=== PATIENT | female | born 1960 | race Caucasian/White ===

== ENCOUNTER → 2020-06-25 08:18 | Outpatient (CLI) | payer OTHER, SELFPAY ==
--- NOTE | ~2020-06-25 | MMUS_ITS ---
EXAMINATION: MM diag roxana implant BI w michael, US breast BI limited HISTORY: Breast pain. Palpable breast abnormalities bilaterally. TECHNIQUE: Additional 3-D tomosynthesis images of the breasts were performed and synthetic 2-D images were generated. CAD analysis was submitted and interpreted. High resolution limited bilateral breast ultrasound was performed. COMPARISON: 02/03/2018 BREAST PARENCHYMAL COMPOSITION: Breast composed of scattered areas of fibroglandular density. FINDINGS: MAMMOGRAPHIC FINDINGS: There are no suspicious masses, calcifications or architectural distortion in either breast to sugges t malignancy. There are bilateral subpectoral saline implants. ULTRASOUND: Targeted bilateral breast ultrasound: In the right breast at 10:00, 3 cm from the nipple, there is a 4 mm cyst. No other discrete mass is identified in the area of palpable concern in either breast. IMPRESSION: 1. No evidence for malignancy in either breast. 2. Routine yearly screening mammogram and regular clinical breast examination are recommended. BI-RADS Category 2: Benign finding(s). Reviewed, dictated and finalized at location A. IMPRESSION: 1. No evidence for malignancy in either breast. 2. Routine yearly screening mammogram and regular clinical breast examination a re recommended. BI-RADS Category 2: Benign finding(s).
== END ==
PROVIDERS: Visit Provider Advanced Practice Midwife
DX: N64.4 Mastodynia (principal)
CPT/HCPCS: 76642; 77062; 77066; G0279

== ENCOUNTER → 2021-05-22 15:34 | Outpatient (CLI) | payer OTHER, SELFPAY ==
--- NOTE | ~2021-05-22 | US_ITS ---
EXAMINATION: US renal BI EXAM DATE: 05/22/2021 16:01 INDICATION: Urinary crystals, amorphous urate. Hematuria. TECHNIQUE: Multiple grayscale and Doppler images of the kidneys were obtained (by a technologist who performed the scan) and subsequently reviewed. There is no prior study for comparison. FINDINGS: Right kidney: Surgically resected. Left kidney: There is normal contour and echogenicity. It measures 12.2 x 5.0 x 5.5 centimeters. Th ere are no focal renal lesions identified. There is no hydronephrosis. Bladder unremarkable. IMPRESSION: 1. Unremarkable left kidney. Reviewed, dictated and finalized at location B.
== END ==
PROVIDERS: Visit Provider Nurse Practitioner Obstetrics & Gynecology
DX: R82.998 Other abnormal findings in urine (principal)
CPT/HCPCS: 76775

== ENCOUNTER 2024-03-05 14:58 | Outpatient (CLI) | payer OTHER, SELFPAY ==
--- NOTE | ~2024-03-05 | MM_ITS ---
EXAMINATION: MM scrn roxana implant BI w michael HISTORY: Screening mammogram TECHNIQUE: Craniocaudal and mediolateral oblique 3-D tomosynthesis images with implant displacement a nd synthetic 2-D images were generated. Craniocaudal and mediolateral oblique views of the breasts wi thout implant displacement were obtained using full field digital mammography. CAD analysis was submi tted and interpreted. COMPARISON: Comparison to multiple prior studies sequentially, with oldest reviewed study dated 06/13. BREAST PARENCHYMAL COMPOSITION: Not dense: There are scattered areas of fibroglandular density. FINDINGS: There are developing asymmetries in the right breast medially and laterally on CC view. The left breast is stable without evidence for malignancy. IMPRESSION: 1. Developing right breast asymmetries. 2. Additional mammographic views and possible breast ultrasound are recommended. BI-RADS Category 0: Incomplete: Needs additional imaging evaluation. Reviewed, dictated and finalized at location B. IMPRESSION: 1. Developing right breast asymmetries. 2. Additional mammographic views and possible breast ultrasound are recommended . BI-RADS Category 0: Incomplete: Needs additional imaging evaluation.
== END 2024-03-05 14:59 ==
LOC: MICIMG 14:59
DX: Z12.31 Encounter for screening mammogram for malignant neoplasm of breast (principal); R92.8 Other abnormal and inconclusive findings on diagnostic imaging of breast
CPT/HCPCS: 77063; 77067

== ENCOUNTER 2024-03-21 12:33 | Emergency (ER) | payer SELFPAY ==
[2024-03-21 12:50] VITALS: BP 131/70; PULSE 73; RESP 18; TEMP 36.6; O2SAT 99
--- NOTE | 2024-03-21 12:57 | ED.FEMALEGU ---
HPI - Female Genitourinary General Stated complaint: having bladder issues Source: patient and RN notes reviewed Mode of arrival: ambulatory Limitations: no limitations History of Present Illness HPI Narrative: 63-year-old female with a history right nephrectomy at age 4 presented for complaint of urinary frequency and decreased output with dribbling. Onset 3 days. States her urine output and voiding is normal today. Reports she has been having left lower abdominal pain, for which she has been evaluated and told she has cysts on kidney and liver. Denies hematuria, nausea, vomiting, abdominal pain, flank pain, constipation, diarrhea, fevers or chills. Smokes 1ppd. Took 4 amoxicillin this morning for dental work. Related Data Home Medications Medication Instructions Recorded Confirmed carisoprodol 350 mg tablet (Soma) 350 mg PO TID 03/21/24 03/21/24 hydrocodone 7.5 mg-acetaminophen 1 tablet PO Q6H PRN Pain, Moderate 03/21/24 03/21/24 300 mg tablet lorazepam 1 mg tablet (Ativan) 1 mg PO BID PRN Anxiety 03/21/24 03/21/24 Allergies Allergy/AdvReac Type Severity Reaction Status Date / Time levofloxacin AdvReac Joint Pain Verified 03/21/24 13:11 Review of Systems Review of Systems: CONSTITUTIONAL: Denies body aches, fever, chills, or sweats. CARDIOVASCULAR: Denies chest pain, palpitations, or edema. RESPIRATORY: Denies cough or dyspnea. GASTROINTESTINAL: Denies abdominal pain, nausea, vomiting, or diarrhea. GENITOURINARY: Reports frequency, urgency, denies dysuria, hematuria, flank pain SKIN: Denies rash MUSCULOSKELETAL: Denies back pain or myalgia. [facility] Past Medical History Medical History (Updated 03/21/24 @ 13:22 by Juany Reynoso APRN) Arthritis Surgical History Surgical History (Updated 03/21/24 @ 13:22 by Juany Reynoso APRN) H/O right nephrectomy Comments At time of signature, I have reviewed and agree with nursing past medical, surgical, social and family history unless otherwise noted. Please see nursing chart for further information. There is no relevant family history pertinent to the presenting complaint Exam Narrative: GENERAL: Well-appearing and in no acute distress. ENT: Mucous membranes pink and moist. NECK: Normal AROM. Supple. CHEST: No respiratory distress. Clear to auscultation. HEART: Regular rate and rhythm. ABDOMEN: Soft, nontender, nondistended, normal active bowel sounds. No CVA tenderness SKIN: Warm, dry, no rash. NEURO: No focal deficits. Alert and oriented x3. Gait steady. PSYCH: Normal affect. Course Course Emergency Course: Patient is aware of diagnosis, understands and agrees to treatment plan. Anticipatory guidance given. Patient agrees to follow-up as directed and is aware of reasons to seek care at the emergency department. Portions of this record may have been created with voice recognition software Level of Care: Express Care Visit Vital Signs Vital signs: Reviewed MDM - Female Genitourinary MDM Narrative Medical decision making narrative: Discussed physical exam findings and urine dip. Given her history of nephrectomy, will await culture results. Advised supportive measures and signs/symptoms to go to the ER. Pt is appropriate for outpt treatment and f/u. Differential Diagnosis Differential diagnosis: Likely urinary tract infection, cystitis and other Discharge Plan Discharge Clinical Impression: Urinary frequency Patient Disposition: Home, Self-Care Condition: Stable Instructions: Antibiotic Form, Urinary Tract Infection in Women (ED) Additional Instructions: Your urine will be sent of for a culture to determine if bacteria is causing your symptoms. If the culture shows a UTI, you will be notified and an antibiotic will be called in for you. Continue to increase water intake you will need to follow up with your PCP for further evaluation and treatment if symptoms persist, call today to schedule follow-u
[2024-03-21 13:19] LABS: EDUAAPPEAR Clear; EDUABILI Negative; EDUABLOOD 1+; EDUACOLOR1 Yellow; EDUAGLUCOSE Negative; EDUAKETONE Negative; EDUALEUKO Negative; EDUANITRATE Negative; EDUAPROTEIN Negative; EDUAUROBILI 0.2
[2024-03-21 13:28] VITALS: BP 131/70; PULSE 73; RESP 18; TEMP 36.6; O2SAT 99
== END 2024-03-21 13:20 | disposition home or self-care (01) ==
PROVIDERS: Emergency Provider Nurse Practitioner Family
DX: R35.0 Frequency of micturition (principal); M19.90 Unspecified osteoarthritis, unspecified site; Z90.5 Acquired absence of kidney
CPT/HCPCS: 81003; 87086; 99213; G0463

== ENCOUNTER 2024-04-24 09:32 | Outpatient (CLI) | payer OTHER, SELFPAY ==
--- NOTE | ~2024-04-24 | MMUS_ITS ---
EXAMINATION: MM diag roxana implant RT w michael, US breast RT complete HISTORY: Follow-up right breast asymmetries TECHNIQUE: Additional 3-D tomosynthesis images of the right breast were performed and synthetic 2-D i mages were generated. CAD analysis was submitted and interpreted. High resolution complete right sukhdev st ultrasound was performed. COMPARISON: Comparison to multiple prior studies sequentially, with oldest reviewed study dated 03/2020. BREAST PARENCHYMAL COMPOSITION: Not dense: There are scattered areas of fibroglandular density. FINDINGS: MAMMOGRAPHIC FINDINGS: There are no suspicious masses, calcifications or architectural distortion in the right breast to sug gest malignancy. ULTRASOUND: Complete US of all 4 quadrants of the right breast and retroareolar region was reviewed. Normal heter ogeneous echotexture without focal solid or cystic mass. IMPRESSION: 1. No evidence for malignancy in the right breast. 2. Routine yearly screening mammogram and regular clinical breast examination are recommended. BI-RADS Category 1: Negative Reviewed, dictated and finalized at location B. IMPRESSION: 1. No evidence for malignancy in the right breast. 2. Routine yearly screening mammogram and regular clinical breast examination a re recommended. BI-RADS Category 1: Negative
== END 2024-04-24 09:33 ==
DX: R92.8 Other abnormal and inconclusive findings on diagnostic imaging of breast (principal)
CPT/HCPCS: 76641; 77061; 77065; G0279

== ENCOUNTER 2025-06-03 08:45 | Outpatient (CLI) | payer OTHER, SELFPAY ==
--- NOTE | ~2025-06-03 | MM_ITS ---
EXAMINATION: MM scrn roxana implant BI w michael HISTORY: Screening TECHNIQUE: Craniocaudal and mediolateral oblique 3-D tomosynthesis images were obtained and synthetic 2-D images were generated. CAD analysis was submitted and interpreted. Implant displacement views were obtained. COMPARISON: No prior mammogram is available for comparison at this institution. BREAST PARENCHYMAL COMPOSITION: There are scattered areas of fibroglandular density. FINDINGS: There is no evidence of suspicious mass, calcification, or architectural distortion to suggest malignancy. There has been no suspicious interval change. Stable unremarkable breast implants. IMPRESSION: 1. No mammographic evidence of malignancy. Recommend routine screening mammography in one year. BI-RADS Category 2: Benign finding(s) Reviewed, dictated and finalized at location Q. IMPRESSION: 1. No mammographic evidence of malignancy. Recommend routine screening mammogra phy in one year. BI-RADS Category 2: Benign finding(s)
--- OUTSIDE RECORDS SUMMARY | 2025-06-03 09:35 | XMS_ITS | Clinical Summary ---
Author Organization [facility] Address [address] [place] [address] Care Team Providers Care Mold Yard Worker Name Role Phone Rosina ZAVALA MD, Garrett Unavailable [phone] Douglas Samuel MD Primary Care Provider [phone] Moe Ryan MD Unavailable [phone] Source Comments [facility],non-owned Affiliates and Associated Physician Practices is amultiple site organization consisting of ambulatory clinics and hospital sitesin [place], [place], [place] and [place]. This disclosure is being madepursuant to the Care Everywhere program and may not contain all information available regarding this patient. Last updated 18.[facility] Allergies Active Allergy Reactions Criticality Noted Date Comments Acetaminophen-Codein e Nausea and/or Vomiting 10/03/2013 Pt states she take tylenol alone at home with no reaction Medications * Be aware that medications may not be up to date on this document. Alwaysverify current medications with the patient. ranitidine (ZANTAC) 300 MG capsule Take 600 mg by mouth once daily. Active LORazepam (ATIVAN) 1 MG tablet Take 1 mg by mouth every 12 hours as needed. Active tiZANidine (ZANAFLEX) 2 MG tablet Take 2 mg by mouth every 8 hours as needed. Active hydrocodone-staci taminophen (NORCO) 10-325 MG tablet Take 1 Tab by mouth every 4 hours as needed. Active aspirin 81 MG tablet Take 81 mg by mouth once daily. Active oxycodone-aceta minophen (PERCOCET) 10-325 MG tablet Take 1 Tab by mouth every 4 hours as needed. Active hydrocodone-staci taminophen (NORCO) 7.5-325 MG tablet Take 1-2 Tabs by mouth every 4 hours as needed for Pain. 40 Tab 0 11/29/2013 Active hydrOXYzine hcl (ATARAX) 25 MG tablet Take 1 Tab by mouth every 6 hours as needed for Itching (pain, insomnia). 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 Gender Identity Not on file Sexual Orientation Not on file Last Filed Vital Signs Vital Sign Reading Time Taken Comments Blood Pressure 105/69 11/29/2013 4:03 PM CDT Pulse 66 11/29/2013 4:03 PM CDT Temperature 36.1 C (97 F) 11/29/2013 4:03 PM CDT Respiratory Rate 16 11/29/2013 4:03 PM CDT Oxygen Saturation 100% 11/29/2013 4:03 PM CDT Inhaled Oxygen Concentration - - Weight 57.2 kg (126 lb) 05/28/2014 2:24 PM CDT Height 149.9 cm (4' 11) 05/28/2014 2:24 PM CDT Body Mass Index 25.45 05/28/2014 2:24 PM CDT Plan of Treatment Health Maintenance Due Date Last Done Comments BONE DENSITY TESTING 1960 COLOGUARD (AGES 45-75) - COL ON CA SCREENING 1960 COLON MONITORING 1960 COLONOSCOPY - COLON CA SCREENING 1960 CT COLONOGRAPHY - COLON CA SCREENING 1960 Colorectal Cancer Screening 1960 FIT - COLON CA SCREENING 1960 FLEX SIG - COLON CA SCREENING 1960 LIPID TESTING 1960 MAMMOGRAM 1960 HIV SCREENING 1975 HEPATITIS C SCREENING 04/06/1978 DTAP/TDAP/TD VACCINES (1 - Tdap) 1979 PNEUMOCOCCAL VACCINE 50+ (1 of 1 - PCV) 2010 ZOSTER VACCINE (1 of 2) 2010 DEPRESSION SCREENING 09/19/2024 COVID-19 VACCINE (1 - 2023-2 5 season) 2025 INFLUENZA VACCINE (#1) 2025 Respiratory Syncytial Virus (RSV) Vaccine Pt: or over 60 yrs (1 - 1-dose 75+ series) 2035 HEPATITIS B VACCINE Aged Out No longe r eligible based on patient's age to complete this topic HIB VACCINE Aged Out No longer eligi ble based on patient's age to complete this topic HPV VACCINE Aged Out No longer eligi ble based on patient's age to complete this topic MENINGOCOCCAL (Group B) VACC INE SHARED DECISION-MAKING Aged Out No longer eligibl e based on patient's age to complete this topic MENINGOCOCCAL GROUPS A/C/Y/W VACCINE Aged Out No longer eligible b ased on patient's age to complete this topic Insurance [facility] Care Teams Mold Yard Worker Relationship Specialty Start Date End Date Douglas Samuel MD [address] [place] [address] PCP - General Family Medicine 10/01/13 [place] [id number] [facility] [address] [place] [id number] Orthopedic Surgery 10/01/13 [place] [id number] [address] Anesthesiology-Pain Management 10/05/13
--- OUTSIDE RECORDS SUMMARY | 2025-06-03 09:35 | XMS_ITS | Encounter Summary ---
Author Organization [facility] Address [address] [place] [address] Phone Care Team Providers Care Sales Representative Electric Service Name Role Phone Whitney Rodrigez APRN, HERLINDA Primary Care Pro vider Jordana Emerson MD Unavailable [phone] Encounter Details Date Type Department Care Team (Late st Contact Info) Description 03/08/[address] [facility] Preop/Pacu II [address] [place] [address] Jordana Emerson MD [address] [address] Pre-op testing (Primary Dx) Social History Tobacco Use Types Packs/Day Years Used Date Smoking Tobacco: Every Day Cigarettes 1 40 Smokeless Tobacco: Never Alcohol Use Standard Drinks/Week Comments No 0 (1 standard drink = 0.6 oz pur e alcohol) Comments No Sex and Gender Information Value Date Recorded Sex Assigned at Not on file Legal Sex Female 7:27 PM CDT Gender Identity Not on file Sexual Orientation Not on file documented as of this encounter Plan of Treatment Upcoming Encounters Date Type Department Care Team (Late st Contact Info) Description 06/06/2025 3:15 PM CDT Office Visit [facility] - [facility] [address] [place] [address] Jordana Emerson MD [address] [address] documented as of this encounter Results * APTT (PTT) (03/08/2025 11:19 AM CDT) Pathologist [facility] PTT 28 24 - 36 sec 03/08/2025 12:45 PM CDT [facility] Blood Venipuncture / Unknown 03/08/2025 11:19 AM CDT 03/08/2025 12:26 PM CDT Narrative [facility] - 03/08/2025 12:45 PM CDT Therapeutic range for unfractionated heparin at 0.3-0.7 U/mL is an aPTT value in the range of 71-100 seconds. Critical value for the PTT test is >= 122 seconds. Jordana Emerson MD HEMATOLOGY ORDERABLES Final Res ult Performing Organization Address [facility] Co de Phone Number [facility] [address] [place] [address] * PROTIME (PT) (PROTHROMBIN TIME) (03/08/2025 11:19 AM CDT) Pathologist [facility] PROTIME-PATIENT 13.0 11.6 - 14.8 sec 03/08/2025 12:45 PM CDT [facility] INR 1.0 0.9 - 1.2 03/08/2025 12:45 PM CDT [facility] Comment: Therapeutic Ranges INR = 2.0-3.0: Venous thromb, atrial fib, pul embolism, tissue heart valve, ami. INR = 2.5-3.5: Mechanical heart valve Critical value for INR is >/= 4.5 Blood Venipuncture / Unknown 03/08/2025 11:19 AM CDT 03/08/2025 12:26 PM CDT Jordana Emerson MD HEMATOLOGY ORDERABLES Final Res ult Performing Organization Address [facility] Co de Phone Number [facility] [address] [place] [address] documented in this encounter Visit Diagnoses Diagnosis Pre-op testing- Primary Preoperative examination, unspecified documented in this encounter Additional Health Concerns Assessment Noted Time PHQ-9 Depression Total Score: 9 11/07/19 18 1:00 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
--- OUTSIDE RECORDS SUMMARY | 2025-06-03 09:35 | XMS_ITS | Clinical Summary ---
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 INSTRUCTIONS GIVEN TO HOLD UNTIL 03/12/25 SURGERY. Active LORazepam (ATIVAN) 1 MG Tablet Take 1 Tab by mouth 2 times daily. 60 Tab 5 7 Active Additional Information Patient taking differently:1 mg Oral 2 TIMES DAILY,Only taking one dose at bedtime per patient report, Reported on 03/12/2025 Lactobacillus (FLORAJEN ACIDOPHILUS PO) Take 1 Cap by mouth daily. Active HYDROcodone-staci taminophen (NORCO) 5-325 MG Tablet Take 1 Tab by mouth 2 times daily as needed for Pain. 60 Tab 8 Active cyclobenzaprine (FLEXERIL) 10 MG TabletIndicatio ns:Muscle spasms of both lower extremities Take 1 Tab by mouth 3 times daily as needed for Muscle spasms. 60 Tab 1 8 Active RABEprazole (ACIPHEX) 20 MG Tablet Delayed Response TAKE ONE TABLET BY MOUTH TWO TIMES A DAY 180 Tab 8 Active Additional Information Patient taking differently: 20 mg Oral 2 TIMES DAILY, Reported on 03/12/2025 traMADol (ULTRAM) 50 MG TabletIndicatio ns:Open fracture of nasal bone, initial encounter Take 1-2 Tablets by mouth every 6 hours as needed for Severe pain. 20 Tablet Active Additional Information Patient not taking.Reported on 03/08/2025 ezetimibe (ZETIA) 10 MG Tablet Take 10 mg by mouth daily. Active carisoprodol (Soma) 350 MG Tablet Take 350 mg by mouth 3 times daily as needed for Muscle spasms. Active Vitamin A (BETA CAROTENE) 3 MG (22659 UT) Capsule Take 10,000 Units by mouth every other day. Active Cyanocobalamin (VITAMIN B-12 PO) Take by mouth every other day. Active VITAMIN D PO Take 5,000 Units by mouth daily. Active Apoaequorin (Prevagen) 10 MG Capsule Take 10 mg by mouth daily. Active Multivitamin-Mi nerals (Hair Skin and Nails Formula) Tablet Take 1 Tablet by mouth daily. Active fluticasone (FLONASE) 50 MCG/ACT SuspensionIndic ations:Nasal congestion,Hype rtrophy of both inferior nasal turbinates,Maryana ated nasal septum,Allergic rhinitis, unspecified seasonality, unspecified trigger,Eustach tae tube dysfunction, right 2 Sprays by Nasal route daily for 30 days. Use in each nostril as directed. 9.9 mL 2 5 025 Active Problems Problem Noted Date Diagnosed Date Nasal fracture 03/12/2025 Thyroid nodule 08/01/2017 Maxillary sinusitis 07/15/2017 Sore throat 06/16/2017 Acute allergic rhinitis due to pollen 06/16/2017 Neck mass 06/16/2017 Incontinence of feces with fecal urgency 017 Acute superficial gastritis without hemorrhage 1 Neck pain Back pain Headache Dyslipidemia Muscle spasms of neck Encounters Date Type Department Care Team Description 04/24/2025 11:30 AM CDT Office Visit [facility] - [facility] - [place] [address] [place] [id number] Jordana Emerson MD Hearing loss, unspecified hearing loss type, unspecified laterality (Primary Dx); Postoperative visit; Nasal congestion; Hypertrophy of both inferior nasal turbinates; Deviated nasal septum; Allergic rhinitis, unspecified seasonality, unspecified trigger; Eustachian tube dysfunction, right; Facial scar Discharge Disposition: Discharged to home or Selfcare 04/24/2025 Travel 03/28/2025 3:00 PM CDT Office Visit [facility], [facility] & [facility] [address] [place] [address] Jordana Emerson MD Nasal congestion (Primary Dx); Encounter for postoperative care Discharge Disposition: Discharged to home or Selfcare 03/28/2025 Travel 03/20/2025 8:30 AM CDT Office Visit [facility], [facility] & [facility] [place] [address] Jordana Emerson MD Postoperative visit (Primary Dx); Closed displaced fracture of nasal bone with routine healing, subsequent encounter Discharge Disposition: Discharged to home or Selfcare 03/20/2025 Travel 03/18/2025 Telephone [facility] Ear, Nose & Th[facility] [address] [facility] [place] [place] [address] Jordana Emerson MD Surgical Follow-up 03/13/2025 Telephone [facility] & [facility] [address] [facility] [place] [address] Jordana Emerson MD Surgical Follow-up 03/13/2025 Telephone [facility], Nose & Th[facility] #2 [facility] [place] [address] Jordana Emerson MD Surgical Follow-up 03/12/2025 10:10 AM CDT - 03/12/2025 1:00 PM CDT [facility] [place] [address] Jordana Emerson MD BILATERAL INFERIOR TURBINATE REDUCTION 03/12/2025 9:04 AM CDT [facility] [address] [place] [address] Eugene Hines APRN, RUSS 03/12/2025 7:55 AM CDT - 03/12/2025 12:00 PM CDT [facility] [address] [place] [address] Jordana Emerson MD Discharge Disposition: Discharged to home or Selfcare 03/12/2025 Travel 03/08/2025 [facility] [address] [place] [address] Jordana Emerson MD Pre-op testing (Primary Dx) 03/08/2025 Travel 03/07/2025 1:30 PM CDT Office Visit [facility] - [facility], Nose & Th[facility]at - [place] [address] [place] [address] Jordana Emerson MD Closed displaced fracture of nasal bone, initial encounter (Primary Dx); Nasal congestion; Hypertrophy of both inferior nasal turbinates; Deviated nasal septum Discharge Disposition: Discharged to home or Selfcare 03/07/2025 Telephone [facility] - [facility], N[facility] & [facility] - [place] [address] [place] [address] Jordana Emerson MD 03/05/2025 7:56 PM CDT - 03/05/2025 11:19 PM CDT [facility] [address] [place] [address] Nick Sanders MD Open fracture of nasal bone, initial encounter Discharge Disposition: Discharged to home or Selfcare 03/05/2025 Travel from Last 3 Months Immunizations Immunization Administration Dates Next Due Influenza Vaccine greater than 3 yrs 06/21/2012 Influenza Vaccine, Quadrivalent, PF 08/09/2017 PUR FLU 3+ YRS PRES FREE QUAD IM 05/27/2016,08/19 PUR TDAP 7+ YRS IM 01/06/2017 Pneumococcal Vaccine Adult - 23 Valent 8 Family History Medical History Relation Name Comments Coronary Artery Disease Father High Cholesterol Father High Cholesterol Mother Relation Name Status Comments Father Mother Social History Tobacco Use Types Packs/Day Years Used Date Smoking Tobacco: Every Day Cigarettes 1 40 Smokeless Tobacco: Never Tobacco Cessation:Ready to Q uit: Not Asked; Counseling Given: Not Answered Alcohol Use Standard Drinks/Week Comments No 0 (1 standard drink = 0.6 oz pur e alcohol) Comments No Sex and Gender Information Value Date Recorded Sex Assigned at Not on file Legal Sex Female 7:27 PM CDT Gender Identity Not on file Sexual Orientation Not on file Last Filed Vital Signs Vital Sign Reading Time Taken Comments Blood Pressure 130/82 04/24/2025 11:44 AM CDT Pulse 80 04/24/2025 11:44 AM CDT Temperature 36.3 C (97.3 F) 04/24/2025 11:44 AM CDT Respiratory Rate 18 04/24/2025 11:44 AM CDT Oxygen Saturation 96% 04/24/2025 11:44 AM CDT Inhaled Oxygen Concentration - - Weight 56.2 kg (124 lb) 04/24/2025 11:44 AM CDT Height 147.3 cm (4' 10) 04/24/2025 11:44 AM CDT Body Mass Index 25.92 04/24/2025 11:44 AM CDT Plan of Treatment Upcoming Encounters Date Type Department Care Team (Late st Contact Info) Description 06/06/2025 3:15 PM CDT Office Visit [facility] - [facility] - [place] [address] [place] [address] Jordana Emerson MD [address] [address] [address] Health Maintenance Due Date Last Done Comments DEXA Bone Density 1960 Hepatitis C Virus (HCV) Screening 1960 Mammogram 1960 Cologuard 2005 Immunochemical Fecal Occult Blood 2005 Lung Cancer Screening 2010 Zoster Immunization (2 of 3) 10/03/2018 08/08/2018 Pneumococcal Immunization (50+ years) (3 of 3 - PCV20 or PCV21) 07/21/2023 07/21/2018, 11/07/2017 Influenza Immunization (#1) 05/20/202506/20, 07/14/2023, 06/01/2022, Additional history exists SARS-COV-2 Immunization ( season) 2025 03/02/2023, 07/01/2022, 12/31/2021, Additional history exists Td Immunization Every 10 Years (Adults With 1 Tdap) 01/06/2027 01/06/2017 Colonoscopy 04/02/2034 04/02/2024, 07/07/2012 Colorectal Cancer Screening 04/02/2034 Respiratory Syncytial Virus (RSV) Immunization (Adult) (1 - 1-dose 75+ series) 2035 Pneumococcal Immunization Combined Discontinued 07/21/2018, 11/07/2017 Hepatitis B Immunization Aged Out No longer eligible based on patient's age to complete this topic Human Papillomavirus (HPV) Immunization Aged Out No longer eligible based on patient's age to complete this topic Meningococcal Immunization (ACWY) Aged Out No longer eligible based on patient's age to complete this topic Rotavirus Immunization Aged Out No lo nger eligible based on patient's age to complete this topic Procedures Procedure Name Priority Date/Time Associated Diagnosis Comments TYMPANOMETRY Routine 04/24/2025 11:30 AM CDT Eustachian tube dysfunction, right NASAL ENDOSCOPY,DX Routine 04/24/2025 11:30 AM CDT Postoperative visit Nasal congestion Hypertrophy of both inferior nasal turbinates Deviated nasal septum Allergic rhinitis, unspecified seasonality, unspecified trigger Eustachian tube dysfunction, right LMA Routine 03/12/2025 9:48 AM CDT CLOSED RX NOSE FX W STABILIZATN 03/12/2025 8:44 AM CDT CLOSED DISPLACED FRACTURE OF NASAL BONE, NASAL CONGESTION, HYPERTROPHY OF BOTH INFERIOR NASAL TURBINATES, DEVIATED NASAL SEPTUM Special Needs 4'10 128LBS CHRONIC HINSON, AND NECK AND BACK PAIN, ANXIETY. CLOSED RX NOSE FRACTURE 03/12/2025 8:44 AM CDT CLOSED DISPLACED FRACTURE OF NASAL BONE, NASAL CONGESTION, HYPERTROPHY OF BOTH INFERIOR NASAL TURBINATES, DEVIATED NASAL SEPTUM Special Needs 4'10 128LBS CHRONIC HINSON, AND NECK AND BACK PAIN, ANXIETY. THERAPUTIC FRACTURE INFER TURBINATE 03/12/2025 8:44 AM CDT CLOSED DISPLACED FRACTURE OF NASAL BONE, NASAL CONGESTION, HYPERTROPHY OF BOTH INFERIOR NASAL TURBINATES, DEVIATED NASAL SEPTUM Special Needs 4'10 128LBS CHRONIC HINSON, AND NECK AND BACK PAIN, ANXIETY. EXCISION TURBINATE,SUBMUCOU S 03/12/2025 8:44 AM CDT CLOSED DISPLACED FRACTURE OF NASAL BONE, NASAL CONGESTION, HYPERTROPHY OF BOTH INFERIOR NASAL TURBINATES, DEVIATED NASAL SEPTUM Special Needs 4'10 128LBS CHRONIC HINSON, AND NECK AND BACK PAIN, ANXIETY. EXCISION TURBINATE 03/12/2025 8: 44 AM CDT CLOSED DISPLACED FRACTURE OF NASAL BONE, NASAL CONGESTION, HYPERTROPHY OF BOTH INFERIOR NASAL TURBINATES, DEVIATED NASAL SEPTUM Special Needs 4'10 128LBS CHRONIC HINSON, AND NECK AND BACK PAIN, ANXIETY. CBC WITH AUTO DIFFERENTIAL Routine 03/08/2025 11:19 AM CDT Pre-op testing APTT (PTT) Routine 03/08/2025 11:19 AM CDT Pre-op testing PROTIME (PT) (PROTHROMBIN TIME) Routine 03/08/2025 11:19 AM CDT Pre-op testing COMPLETE BLOOD COUNT (CBC) WITH DIFF Routine 03/08/2025 11:19 AM CDT Pre-op testing LACERATION REPAIR Routine 03/05/2025 10:02 PM CDT XR FOOT 3 OR MORE VIEWS LEFT STAT 03/05/2025 9:[address] CERVICAL SPINE WO/ CONTRAST Stat with Interpretation 03/05/2025 9:[address] FACIAL BONES WO CONTRAST Stat with Interpretation 03/05/2025 9:[address] HEAD OR BRAIN WO CONTRAST Stat with Interpretation 03/05/2025 9:10 PM CDT HM COLONOSCOPY Routine 07/07/2012 from Last 3 Months or Most Recently Relevant to Health Maintenance Results * TYMPANOMETRY (04/24/2025 11:30 AM CDT) Narrative Jordana Emerson MD - 04/24/2025 11:30 AM CDT Jordana Emerson MD 04/24/2025 12:39 PM Tympanometry: Right ear: type C curve with normal external canal volume, -105 dapa, ipsilateral reflex absent Left ear: type C curve with normal external canal volume, -106 dapa , ipsilateral reflex absent Jordana Emerson MD [place] - OTORHINOLARYNGOLOGIC Final Result * NASAL ENDOSCOPY,DX (04/24/2025 11:30 AM CDT) Other Narrative Jordana Emerson MD - 04/24/2025 11:30 AM CDT Jordana Emerson MD 04/24/2025 12:39 PM Procedure: Rigid Nasal Endoscopy Anesthesia: Bilateral Nasal Cavities sprayed with lidocaine and oxymetazoline Detail: Rigid nasal endoscopy performed bilaterally. We visualized the entire septum as well as the inferior turbinate, middle turbinate, superior turbinate and sphenoethmoid recess. We also visualized the nasopharynx. Unless mentioned below these structures were normal. Septum was deviated to the right. Bilateral nasal cavity showed clear nasopharynx,no mucopurulent secretions, EBL: none Jordana Emerson MD PROCEDURE/MINOR SURGICAL ORDERA BLES Final Result * LMA (03/12/2025 9:48 AM CDT) Narrative Eugene Hines APRN, CRNA - 03/12/2025 9:48 AM CDT Eugene Hines APRN, CRNA 03/12/2025 9:48 AM LMA Staffing Performed: resident/MEDICAID BILLING CLERK Resident/MEDICAID BILLING CLERK: Eugene Hines APRN, CRNA Performed by: Eugene Hines APRN, CRNA Authorized by: Eugene Hines APRN, CRNA Airway Details Overall Difficulty: Easy LMA Size: 3 Adequate seal established: Yes LMA placement confirmed by: bilateral breath sounds, CO2 detection Atraumatic LMA Placement Eugene Corby Norwood BOX LOADER, MEDICAID BILLING CLERK ANESTHESIA ORDER LORETTA Final Result * (ABNORMAL) CBC WITH AUTO DIFFERENTIAL (03/08/2025 11:19 AM CDT) WBC 7.14 4.00 - 12.00 10(3)/mcL 03/08/2025 1:53 PM CDT [facility] RBC 4.48 3.80 - 5.30 10(6)/mcL 03/08/2025 1:53 PM CDT [facility] HEMOGLOBIN (HGB) 14.4 12.0 - 15.8 g/dL 03/08/2025 1:53 PM CDT [facility] HEMATOCRIT (HCT) 43.1 36.0 - 47.0 % 03/08/2025 1:53 PM CDT [facility] MCV 96.2(H) 82.0 - 96.0 fL 03/08/2025 1:53 PM CDT [facility] MCH 32.1 26.0 - 34.0 pg 03/08/2025 1:53 PM CDT [facility] MCHC 33.4 31.0 - 36.0 g/dL 03/08/2025 1:53 PM CDT [facility] PLATELET COUNT 177 140 - 440 10(3)/mcL 03/08/2025 1:53 PM CDT [facility] RDW 12.6 11.8 - 15.5 % 03/08/2025 1:53 PM CDT [facility] MPV 11.3 9.7 - 12.4 fL 03/08/2025 1:53 PM CDT [facility] NEUTROPHILS 63.4 47.0 - 73.0 % 03/08/2025 1:53 PM CDT [facility] LYMPHOCYTES 28.9 18.0 - 42.0 % 03/08/2025 1:53 PM CDT [facility] MONOCYTES 6.7 4.0 - 12.0 % 03/08/2025 1:53 PM CDT [facility] EOSINOPHILS 0.6 0.0 - 5.0 % 03/08/2025 1:53 PM CDT [facility] BASOPHILS 0.1 0.0 - 1.0 % 03/08/2025 1:53 PM CDT [facility] IMMATURE GRANULOCYTE 0.3 0.0 - 0.4 % 03/08/2025 1:53 PM CDT [facility] Comment:Immature Granulocyte s includes Metamyelocytes, Myelocytes, and Promyelocytes. ABSOLUTE NEUTROPHILS 4.53 1.60 - 7.70 10(3)/mcL 03/08/2025 1:53 PM CDT [facility] ABSOLUTE LYMPHOCYTES 2.06 1.30 - 3.20 10(3)/[facility] 03/08/2025 1:53 PM CDT [facility] ABSOLUTE MONOCYTES 0.48 0.20 - 1.00 10(3)/mcL 03/08/2025 1:53 PM CDT [facility] ABSOLUTE EOSINOPHIL 0.04 0.00 - 0.40 10(3)/[facility] 03/08/2025 1:53 PM CDT [facility] ABSOLUTE BASOPHILS 0.01 0.00 - 0.10 10(3)/mcL 03/08/2025 1:53 PM CDT [facility] ABSOLUTE IMMATURE GRANULOCYTE 0.02 0.00 - 0.03 10 (3) mcL. 03/08/2025 1:53 PM CDT [facility] NRBC PER 100 WBC 0 03/08/20 1:53 PM CDT [facility] Blood Venipuncture / Unknown 03/08/2025 11:19 AM CDT 03/08/2025 12:26 PM CDT us Jordana Emerson MD HEMATOLOGY ORDERABLES Final Res ult [facility] [address] [place] [address] * APTT (PTT) (03/08/2025 11:19 AM CDT) PTT 28 24 - 36 sec 03/08/2025 12:45 PM CDT [facility] Blood Venipuncture / Unknown 03/08/2025 11:19 AM CDT 03/08/2025 12:26 PM CDT Narrative [facility] - 03/08/2025 12:45 PM CDT Therapeutic range for unfractionated heparin at 0.3-0.7 U/mL is an aPTT value in the range of 71-100 seconds. Critical value for the PTT test is >= 122 seconds. Jordana Emerson MD HEMATOLOGY ORDERABLES Final Res ult Performing Organization Address City/[facility] Co de Phone Number [facility] [address] [place] [address] * PROTIME (PT) (PROTHROMBIN TIME) (03/08/2025 11:19 AM CDT) PROTIME-PATIENT 13.0 11.6 - 14.8 sec 03/08/2025 12:45 PM CDT [facility] INR 1.0 0.9 - 1.2 03/08/2025 12:45 PM CDT [facility] Comment: Therapeutic Ranges INR = 2.0-3.0: Venous thromb, atrial fib, pul embolism, tissue heart valve, ami. INR = 2.5-3.5: Mechanical heart valve Critical value for INR is >/= 4.5 Blood Venipuncture / Unknown 03/08/2025 11:19 AM CDT 03/08/2025 12:26 PM CDT Jordana Emerson MD HEMATOLOGY ORDERABLES Final Res ult Performing Organization Address City/[facility]/ZIP Co de Phone Number [facility] [address] [place] [address] * Laceration Repair (03/05/2025 10:02 PM CDT) Narrative Nick Sanders MD - 03/05/2025 10:02 PM CDT Nick Sanders MD 03/05/2025 10:57 PM Laceration Repair Performed by: Susu Feldman APRN, CNP Authorized by: Susu Feldman APRN, CNP Consent: Consent obtained: Verbal Consent given by: Patient Risks discussed: Infection, pain, need for additional repair, poor cosmetic result and poor wound healing Alternatives discussed: No treatment and delayed treatment Rickreall protocol: Patient identity confirmed: Verbally with patient Anesthesia: Anesthesia method: Topical application and local infiltration Topical anesthetic: LET Local anesthetic: Lidocaine 1% w/o epi Laceration details: Location: Face Face location: Nose Length (cm): 1.5 Pre-procedure details: Preparation: Patient was prepped and draped in usual sterile fashion Exploration: Hemostasis achieved with: Direct pressure Treatment: Area cleansed with: Saline and Shur-Clens Amount of cleaning: Standard Skin repair: Repair method: Sutures Suture size: 6-0 Suture material: Nylon Suture technique: Simple interrupted Number of sutures: 5 Approximation: Approximation: Close Repair type: Repair type: Simple Post-procedure details: Dressing: Antibiotic ointment Procedure completion: Tolerated well, no immediate complications Susu Feldman APRN, CNP PROCEDURE/MINOR DANIELS RGICAL ORDERABLES Final Result * XR FOOT 3 OR MORE VIEWS LEFT (03/05/2025 9:19 PM CDT) Anatomical Region Laterality Modality LOWER EXTREMITY, foot Left Digital Ra diography 03/05/2025 9:41 PM CDT Impressions 03/05/2025 9:43 PM CDT IMPRESSION: No acute abnormality identified. Moderate Kaitlin deformity. Narrative 03/05/2025 9:43 PM CDT EXAM DESCRIPTION: XR FOOT 3 OR MORE VIEWS LEFT REASON FOR STUDY: Injury to distal foot isolated to the 1st distal metatarsal TECHNIQUE: Frontal, oblique, and lateral views of the left foot . COMPARISON: None FINDINGS: BONES/JOINTS: No fracture, malalignment, or suspicious osseous lesion is identified. Mild diffuse interphalangeal joint osteoarthritis. Kaitlin deformity. SOFT TISSUES: Unremarkable. THIS IS AN ELECTRONICALLY VERIFIED FINAL REPORT 03/05/2025 9:41 PM - Electronically signed by Gerardo Estrada M.D. AR: KHOA Report ID: [id number] Reading Location: [id number] Procedure Note Gerardo Estrada MD - 03/05/2025 EXAM DESCRIPTION: XR FOOT 3 OR MORE VIEWS LEFT REASON FOR STUDY: Injury to distal foot isolated to the 1st distal metatarsal TECHNIQUE: Frontal, oblique, and lateral views of the left foot . COMPARISON: None FINDINGS: BONES/JOINTS: No fracture, malalignment, or suspicious osseous lesion is identified. Mild diffuse interphalangeal joint osteoarthritis. Kaitlin deformity. SOFT TISSUES: Unremarkable. THIS IS AN ELECTRONICALLY VERIFIED FINAL REPORT 03/05/2025 9:41 PM - Electronically signed by Gerardo Estrada M.D. AR: KHOA Report ID: [id number] Reading Location: [id number] IMPRESSION: No acute abnormality identified. Moderate Kaitlin deformity. Nick Sanders MD IMG DIAGNOSTIC ORDERABLES Final Result * CT CERVICAL SPINE WO/ CONTRAST (03/05/2025 9:14 PM CDT) Anatomical Region Laterality Modality Spine N/A Computed Tomogra phy 03/05/2025 10:0 5 PM CDT Impressions 03/05/2025 10:07 PM CDT IMPRESSION: 1. No acute intracranial findings. 2. No CT evidence of acute traumatic injury to the cervical spine. 3. Acute comminuted and displaced nasal bone fractures with nasal subcutaneous soft tissue gas and subcutaneous contusions. Acute mildly displaced nasal septal fracture. Narrative 03/05/2025 10:07 PM CDT EXAM DESCRIPTION: CT HEAD OR BRAIN WO CONTRAST; CT CERVICAL SPINE WO/ CONTRAST; CT FACIAL BONES WO CONTRAST REASON FOR STUDY: ground level fall today. TECHNIQUE: Axial images acquired through the brain without intravenous contrast. Images stored on PACS. Automated exposure control was used as a dose optimization technique for this examination. Axial images acquired through the cervical spine without intravenous contrast. Images stored on PACS. Automated exposure control was used as a dose optimization technique for this examination. Axial images acquired through the maxillofacial bones without intravenous contrast. Images stored on PACS. Automated exposure control was used as a dose optimization technique for this examination. COMPARISON: 12/20/2016 FINDINGS: Head: BRAIN: No hemorrhage, edema or mass effect. No recent infarct. Nonspecific periventricular and subcortical white matter hypoattenuation which can be seen as sequela of chronic small vessel ischemic disease. Prominent Virchow Shar spaces or old lacunar infarcts adjacent to the basal ganglia. Acute intraventricular hemorrhage. Basal cisterns are patent. No midline shift. EXTRA-AXIAL SPACES: No fluid collections. No masses. CALVARIUM: No acute calvarial fracture. SINUSES/MASTOIDS: Mucosal thickening of the ethmoid air cells. Otherwise, no fluid or mucosal thickening. ORBITS: No significant abnormality. OTHER: Acute comminuted and displaced nasal bone fractures with nasal subcutaneous soft tissue gas. Acute mildly displaced nasal septal fracture. Cervical spine: There is 2 mm anterolisthesis of C7 on T1, 1 mm anterolisthesis of C2 on C3 and 3 mm retrolisthesis of C4 on C5. There is mild upper cervical kyphosis. There is fusion of C5-C7 vertebral bodies. There is no acute fracture. Multilevel degenerative disc disease at the non fused levels of the cervical spine which is severe at C3-C5 and C7-T1. Ajcg-na-rjlrkuru multilevel facet and uncovertebral joint osteoarthritis with [id number] multilevel osseous neural foraminal stenosis. No acute osseous abnormality in the imaged upper thoracic spine. Neck soft tissues demonstrate no acute abnormality. No cervical mass or cervical lymphadenopathy. Imaged lungs demonstrate mild pulmonary emphysema. Maxillofacial bones: Acute comminuted and displaced nasal bone fractures with nasal subcutaneous soft tissue gas and subcutaneous contusions. Acute mildly displaced nasal septal fracture. Mucosal thickening of the ethmoid air cells. The paranasal sinuses are otherwise clear. The ostiomeatal units are patent bilaterally. Mastoid air cells are clear. The IAC's are normal and symmetric. The temporomandibular joints are aligned. Mild right temporomandibular joint osteoarthritis. Orbits and globes are unremarkable. Facial soft tissues are otherwise largely unremarkable. THIS IS AN ELECTRONICALLY VERIFIED FINAL REPORT 03/05/2025 10:05 PM - Electronically signed by Todd Carson M.D. AT: AT Report ID: [id number] Reading Location: [id number] Procedure Note Todd Carson MD - 03/05/2025 EXAM DESCRIPTION: CT HEAD OR BRAIN WO CONTRAST; CT CERVICAL SPINE WO/ CONTRAST; CT FACIAL BONES WO CONTRAST REASON FOR STUDY: ground level fall today. TECHNIQUE: Axial images acquired through the brain without intravenous contrast. Images stored on PACS. Automated exposure control was used as a dose optimization technique for this examination. Axial images acquired through the cervical spine without intravenous contrast. Images stored on PACS. Automated exposure control was used as a dose optimization technique for this examination. Axial images acquired through the maxillofacial bones without intravenous contrast. Images stored on PACS. Automated exposure control was used as a dose optimization technique for this examination. COMPARISON: 12/20/2016 FINDINGS: Head: BRAIN: No hemorrhage, edema or mass effect. No recent infarct. Nonspecific periventricular and subcortical white matter hypoattenuation which can be seen as sequela of chronic small vessel ischemic disease. Prominent Virchow Shar spaces or old lacunar infarcts adjacent to the basal ganglia. Acute intraventricular hemorrhage. Basal cisterns are patent. No midline shift. EXTRA-AXIAL SPACES: No fluid collections. No masses. CALVARIUM: No acute calvarial fracture. SINUSES/MASTOIDS: Mucosal thickening of the ethmoid air cells. Otherwise, no fluid or mucosal thickening. ORBITS: No significant abnormality. OTHER: Acute comminuted and displaced nasal bone fractures with nasal subcutaneous soft tissue gas. Acute mildly displaced nasal septal fracture. Cervical spine: There is 2 mm anterolisthesis of C7 on T1, 1 mm anterolisthesis of C2 on C3 and 3 mm retrolisthesis of C4 on C5. There is mild upper cervical kyphosis. There is fusion of C5-C7 vertebral bodies. There is no acute fracture. Multilevel degenerative disc disease at the non fused levels of the cervical spine which is severe at C3-C5 and C7-T1. Wjme-sx-aiprclik multilevel facet and uncovertebral joint osteoarthritis with xkew-jx-jmwilnqk multilevel osseous neural foraminal stenosis. No acute osseous abnormality in the imaged upper thoracic spine. Neck soft tissues demonstrate no acute abnormality. No cervical mass or cervical lymphadenopathy. Imaged lungs demonstrate mild pulmonary emphysema. Maxillofacial bones: Acute comminuted and displaced nasal bone fractures with nasal subcutaneous soft tissue gas and subcutaneous contusions. Acute mildly displaced nasal septal fracture. Mucosal thickening of the ethmoid air cells. The paranasal sinuses are otherwise clear. The ostiomeatal units are patent bilaterally. Mastoid air cells are clear. The IAC's are normal and symmetric. The temporomandibular joints are aligned. Mild right temporomandibular joint osteoarthritis. Orbits and globes are unremarkable. Facial soft tissues are otherwise largely unremarkable. THIS IS AN ELECTRONICALLY VERIFIED FINAL REPORT 03/05/2025 10:05 PM - Electronically signed by Todd Carson M.D. AT: AT Report ID: [id number] Reading Location: [id number] IMPRESSION: 1. No acute intracranial findings. 2. No CT evidence of acute traumatic injury to the cervical spine. 3. Acute comminuted and displaced nasal bone fractures with nasal subcutaneous soft tissue gas and subcutaneous contusions. Acute mildly displaced nasal septal fracture. Nick Sanders MD IMG CT ORDERABLES Final Re sult * CT FACIAL BONES WO CONTRAST (03/05/2025 9:11 PM CDT) Anatomical Region Laterality Modality Head N/A Computed Tomogra phy 03/05/2025 10:0 5 PM CDT Impressions 03/05/2025 10:07 PM CDT IMPRESSION: 1. No acute intracranial findings. 2. No CT evidence of acute traumatic injury to the cervical spine. 3. Acute comminuted and displaced nasal bone fractures with nasal subcutaneous soft tissue gas and subcutaneous contusions. Acute mildly displaced nasal septal fracture. Narrative 03/05/2025 10:07 PM CDT EXAM DESCRIPTION: CT HEAD OR BRAIN WO CONTRAST; CT CERVICAL SPINE WO/ CONTRAST; CT FACIAL BONES WO CONTRAST REASON FOR STUDY: ground level fall today. TECHNIQUE: Axial images acquired through the brain without intravenous contrast. Images stored on PACS. Automated exposure control was used as a dose optimization technique for this examination. Axial images acquired through the cervical spine without intravenous contrast. Images stored on PACS. Automated exposure control was used as a dose optimization technique for this examination. Axial images acquired through the maxillofacial bones without intravenous contrast. Images stored on PACS. Automated exposure control was used as a dose optimization technique for this examination. COMPARISON: 12/20/2016 FINDINGS: Head: BRAIN: No hemorrhage, edema or mass effect. No recent infarct. Nonspecific periventricular and subcortical white matter hypoattenuation which can be seen as sequela of chronic small vessel ischemic disease. Prominent Virchow Shar spaces or old lacunar infarcts adjacent to the basal ganglia. Acute intraventricular hemorrhage. Basal cisterns are patent. No midline shift. EXTRA-AXIAL SPACES: No fluid collections. No masses. CALVARIUM: No acute calvarial fracture. SINUSES/MASTOIDS: Mucosal thickening of the ethmoid air cells. Otherwise, no fluid or mucosal thickening. ORBITS: No significant abnormality. OTHER: Acute comminuted and displaced nasal bone fractures with nasal subcutaneous soft tissue gas. Acute mildly displaced nasal septal fracture. Cervical spine: There is 2 mm anterolisthesis of C7 on T1, 1 mm anterolisthesis of C2 on C3 and 3 mm retrolisthesis of C4 on C5. There is mild upper cervical kyphosis. There is fusion of C5-C7 vertebral bodies. There is no acute fracture. Multilevel degenerative disc disease at the non fused levels of the cervical spine which is severe at C3-C5 and C7-T1. Bqyx-ro-eabhottj multilevel facet and uncovertebral joint osteoarthritis with fxnc-fy-zercznbm multilevel osseous neural foraminal stenosis. No acute osseous abnormality in the imaged upper thoracic spine. Neck soft tissues demonstrate no acute abnormality. No cervical mass or cervical lymphadenopathy. Imaged lungs demonstrate mild pulmonary emphysema. Maxillofacial bones: Acute comminuted and displaced nasal bone fractures with nasal subcutaneous soft tissue gas and subcutaneous contusions. Acute mildly displaced nasal septal fracture. Mucosal thickening of the ethmoid air cells. The paranasal sinuses are otherwise clear. The ostiomeatal units are patent bilaterally. Mastoid air cells are clear. The IAC's are normal and symmetric. The temporomandibular joints are aligned. Mild right temporomandibular joint osteoarthritis. Orbits and globes are unremarkable. Facial soft tissues are otherwise largely unremarkable. THIS IS AN ELECTRONICALLY VERIFIED FINAL REPORT 03/05/2025 10:05 PM - Electronically signed by Todd Carson M.D. AT: AT Report ID: [id number] Reading Location: [id number] Procedure Note Todd Carson MD - 03/05/2025 EXAM DESCRIPTION: CT HEAD OR BRAIN WO CONTRAST; CT CERVICAL SPINE WO/ CONTRAST; CT FACIAL BONES WO CONTRAST REASON FOR STUDY: ground level fall today. TECHNIQUE: Axial images acquired through the brain without intravenous contrast. Images stored on PACS. Automated exposure control was used as a dose optimization technique for this examination. Axial images acquired through the cervical spine without intravenous contrast. Images stored on PACS. Automated exposure control was used as a dose optimization technique for this examination. Axial images acquired through the maxillofacial bones without intravenous contrast. Images stored on PACS. Automated exposure control was used as a dose optimization technique for this examination. COMPARISON: 12/20/2016 FINDINGS: Head: BRAIN: No hemorrhage, edema or mass effect. No recent infarct. Nonspecific periventricular and subcortical white matter hypoattenuation which can be seen as sequela of chronic small vessel ischemic disease. Prominent Virchow Shar spaces or old lacunar infarcts adjacent to the basal ganglia. Acute intraventricular hemorrhage. Basal cisterns are patent. No midline shift. EXTRA-AXIAL SPACES: No fluid collections. No masses. CALVARIUM: No acute calvarial fracture. SINUSES/MASTOIDS: Mucosal thickening of the ethmoid air cells. Otherwise, no fluid or mucosal thickening. ORBITS: No significant abnormality. OTHER: Acute comminuted and displaced nasal bone fractures with nasal subcutaneous soft tissue gas. Acute mildly displaced nasal septal fracture. Cervical spine: There is 2 mm anterolisthesis of C7 on T1, 1 mm anterolisthesis of C2 on C3 and 3 mm retrolisthesis of C4 on C5. There is mild upper cervical kyphosis. There is fusion of C5-C7 vertebral bodies. There is no acute fracture. Multilevel degenerative disc disease at the non fused levels of the cervical spine which is severe at C3-C5 and C7-T1. Blyo-dz-nqjxjkkg multilevel facet and uncovertebral joint osteoarthritis with rfge-ik-yxqxpcuk multilevel osseous neural foraminal stenosis. No acute osseous abnormality in the imaged upper thoracic spine. Neck soft tissues demonstrate no acute abnormality. No cervical mass or cervical lymphadenopathy. Imaged lungs demonstrate mild pulmonary emphysema. Maxillofacial bones: Acute comminuted and displaced nasal bone fractures with nasal subcutaneous soft tissue gas and subcutaneous contusions. Acute mildly displaced nasal septal fracture. Mucosal thickening of the ethmoid air cells. The paranasal sinuses are otherwise clear. The ostiomeatal units are patent bilaterally. Mastoid air cells are clear. The IAC's are normal and symmetric. The temporomandibular joints are aligned. Mild right temporomandibular joint osteoarthritis. Orbits and globes are unremarkable. Facial soft tissues are otherwise largely unremarkable. THIS IS AN ELECTRONICALLY VERIFIED FINAL REPORT 03/05/2025 10:05 PM - Electronically signed by Todd Carson M.D. AT: AT Report ID: [id number] Reading Location: [id number] IMPRESSION: 1. No acute intracranial findings. 2. No CT evidence of acute traumatic injury to the cervical spine. 3. Acute comminuted and displaced nasal bone fractures with nasal subcutaneous soft tissue gas and subcutaneous contusions. Acute mildly displaced nasal septal fracture. Nick Sanders MD Glenn CT ORDERABLES Final Re sult * CT HEAD OR BRAIN WO CONTRAST (03/05/2025 9:10 PM CDT) Anatomical Region Laterality Modality Head N/A Computed Tomogra phy 03/05/2025 10:0 5 PM CDT Impressions 03/05/2025 10:07 PM CDT IMPRESSION: 1. No acute intracranial findings. 2. No CT evidence of acute traumatic injury to the cervical spine. 3. Acute comminuted and displaced nasal bone fractures with nasal subcutaneous soft tissue gas and subcutaneous contusions. Acute mildly displaced nasal septal fracture. Narrative 03/05/2025 10:07 PM CDT EXAM DESCRIPTION: CT HEAD OR BRAIN WO CONTRAST; CT CERVICAL SPINE WO/ CONTRAST; CT FACIAL BONES WO CONTRAST REASON FOR STUDY: ground level fall today. TECHNIQUE: Axial images acquired through the brain without intravenous contrast. Images stored on PACS. Automated exposure control was used as a dose optimization technique for this examination. Axial images acquired through the cervical spine without intravenous contrast. Images stored on PACS. Automated exposure control was used as a dose optimization technique for this examination. Axial images acquired through the maxillofacial bones without intravenous contrast. Images stored on PACS. Automated exposure control was used as a dose optimization technique for this examination. COMPARISON: 12/20/2016 FINDINGS: Head: BRAIN: No hemorrhage, edema or mass effect. No recent infarct. Nonspecific periventricular and subcortical white matter hypoattenuation which can be seen as sequela of chronic small vessel ischemic disease. Prominent Virchow Shar spaces or old lacunar infarcts adjacent to the basal ganglia. Acute intraventricular hemorrhage. Basal cisterns are patent. No midline shift. EXTRA-AXIAL SPACES: No fluid collections. No masses. CALVARIUM: No acute calvarial fracture. SINUSES/MASTOIDS: Mucosal thickening of the ethmoid air cells. Otherwise, no fluid or mucosal thickening. ORBITS: No significant abnormality. OTHER: Acute comminuted and displaced nasal bone fractures with nasal subcutaneous soft tissue gas. Acute mildly displaced nasal septal fracture. Cervical spine: There is 2 mm anterolisthesis of C7 on T1, 1 mm anterolisthesis of C2 on C3 and 3 mm retrolisthesis of C4 on C5. There is mild upper cervical kyphosis. There is fusion of C5-C7 vertebral bodies. There is no acute fracture. Multilevel degenerative disc disease at the non fused levels of the cervical spine which is severe at C3-C5 and C7-T1. Hsgs-kk-unkoqctg multilevel facet and uncovertebral joint osteoarthritis with tuai-cn-cjhgayij multilevel osseous neural foraminal stenosis. No acute osseous abnormality in the imaged upper thoracic spine. Neck soft tissues demonstrate no acute abnormality. No cervical mass or cervical lymphadenopathy. Imaged lungs demonstrate mild pulmonary emphysema. Maxillofacial bones: Acute comminuted and displaced nasal bone fractures with nasal subcutaneous soft tissue gas and subcutaneous contusions. Acute mildly displaced nasal septal fracture. Mucosal thickening of the ethmoid air cells. The paranasal sinuses are otherwise clear. The ostiomeatal units are patent bilaterally. Mastoid air cells are clear. The IAC's are normal and symmetric. The temporomandibular joints are aligned. Mild right temporomandibular joint osteoarthritis. Orbits and globes are unremarkable. Facial soft tissues are otherwise largely unremarkable. THIS IS AN ELECTRONICALLY VERIFIED FINAL REPORT 03/05/2025 10:05 PM - Electronically signed by Todd Carson M.D. AT: AT Report ID: [id number] Reading Location: [id number] Procedure Note Todd Carson MD - 03/05/2025 EXAM DESCRIPTION: CT HEAD OR BRAIN WO CONTRAST; CT CERVICAL SPINE WO/ CONTRAST; CT FACIAL BONES WO CONTRAST REASON FOR STUDY: ground level fall today. TECHNIQUE: Axial images acquired through the brain without intravenous contrast. Images stored on PACS. Automated exposure control was used as a dose optimization technique for this examination. Axial images acquired through the cervical spine without intravenous contrast. Images stored on PACS. Automated exposure control was used as a dose optimization technique for this examination. Axial images acquired through the maxillofacial bones without intravenous contrast. Images stored on PACS. Automated exposure control was used as a dose optimization technique for this examination. COMPARISON: 12/20/2016 FINDINGS: Head: BRAIN: No hemorrhage, edema or mass effect. No recent infarct. Nonspecific periventricular and subcortical white matter hypoattenuation which can be seen as sequela of chronic small vessel ischemic disease. Prominent Virchow Shar spaces or old lacunar infarcts adjacent to the basal ganglia. Acute intraventricular hemorrhage. Basal cisterns are patent. No midline shift. EXTRA-AXIAL SPACES: No fluid collections. No masses. CALVARIUM: No acute calvarial fracture. SINUSES/MASTOIDS: Mucosal thickening of the ethmoid air cells. Otherwise, no fluid or mucosal thickening. ORBITS: No significant abnormality. OTHER: Acute comminuted and displaced nasal bone fractures with nasal subcutaneous soft tissue gas. Acute mildly displaced nasal septal fracture. Cervical spine: There is 2 mm anterolisthesis of C7 on T1, 1 mm anterolisthesis of C2 on C3 and 3 mm retrolisthesis of C4 on C5. There is mild upper cervical kyphosis. There is fusion of C5-C7 vertebral bodies. There is no acute fracture. Multilevel degenerative disc disease at the non fused levels of the cervical spine which is severe at C3-C5 and C7-T1. Iqoo-gg-znvjbone multilevel facet and uncovertebral joint osteoarthritis with ddku-jd-uttwkfrj multilevel osseous neural foraminal stenosis. No acute osseous abnormality in the imaged upper thoracic spine. Neck soft tissues demonstrate no acute abnormality. No cervical mass or cervical lymphadenopathy. Imaged lungs demonstrate mild pulmonary emphysema. Maxillofacial bones: Acute comminuted and displaced nasal bone fractures with nasal subcutaneous soft tissue gas and subcutaneous contusions. Acute mildly displaced nasal septal fracture. Mucosal thickening of the ethmoid air cells. The paranasal sinuses are otherwise clear. The ostiomeatal units are patent bilaterally. Mastoid air cells are clear. The IAC's are normal and symmetric. The temporomandibular joints are aligned. Mild right temporomandibular joint osteoarthritis. Orbits and globes are unremarkable. Facial soft tissues are otherwise largely unremarkable. THIS IS AN ELECTRONICALLY VERIFIED FINAL REPORT 03/05/2025 10:05 PM - Electronically signed by Todd Carson M.D. AT: AT Report ID: [id number] Reading Location: [id number] IMPRESSION: 1. No acute intracranial findings. 2. No CT evidence of acute traumatic injury to the cervical spine. 3. Acute comminuted and displaced nasal bone fractures with nasal subcutaneous soft tissue gas and subcutaneous contusions. Acute mildly displaced nasal septal fracture. 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
== END 2025-06-03 08:46 | disposition home or self-care (01) ==
LOC: ANHFOHIMG 08:56
DX: Z12.31 Encounter for screening mammogram for malignant neoplasm of breast (principal)
CPT/HCPCS: 77063; 77067

== ENCOUNTER 2025-07-15 08:35 | Outpatient (CLI) | payer OTHER, SELFPAY ==
--- NOTE | ~2025-07-15 | XR_ITS ---
EXAMINATION: XR hand LT min 3V, XR wrist RT min 3V, XR hand RT min 3V, XR wrist LT min 3V DATE: 07/15/2025 09:46 INDICATION: Bilateral hand and wrist pain TECHNIQUE: 1. Posteroanterior, ulnar deviation, oblique, and lateral views of the left wrist were obtained. 2. Dorsal palmar, oblique and lateral views of the left hand were obtained. 3. Posteroanterior, ulnar deviation, oblique, and lateral views of the right wrist were obtained. 4. Dorsal palmar, oblique and lateral views of the right hand were obtained. COMPARISON: None. FINDINGS: Left hand and wrist: Alignment of the left hand and wrist is normal. No fracture identified. Mild polyarticular osteoarthritis at the wrist, triscaphe, first carpometacarpal and multiple interphalangeal joints. No erosions to suggest inflammatory arthritis No focal soft tissue swelling. Right hand and wrist: Alignment of the right hand and wrist is normal. No fracture identified. Mild polyarticular osteoarthritis at the wrist, triscaphe, first carpometacarpal and multiple interphalangeal joints. No erosions to suggest inflammatory arthritis. No focal soft tissue swelling. IMPRESSION: 1. 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 No erosions to suggest inflammatory arthritis. Reviewed, dictated and finalized at location A. IMPRESSION: 1. 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 No eros ions to suggest inflammatory arthritis. IMPRESSION: 1. 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 No eros ions to suggest inflammatory arthritis. IMPRESSION: 1. 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 No eros ions to suggest inflammatory arthritis.
--- NOTE | ~2025-07-15 | XR_ITS ---
XR_[id number]_CR INDICATION: Neck pain. TECHNIQUE: 3 views of the cervical spine. FINDINGS: Bone mineralization is within normal limits. Lateral dental intervals are within normal limits. Bony fusion of the C5, C6 and C7 vertebral bodies. Grade 1 retrolisthesis of C3 on C4 and C4 on C5. Grade 1 anterolisthesis of C7 on T1. Severe intervertebral disc space narrowing at the C3-C4 and C4-C5 levels. Degenerative change throughout the cervical facet joints and uncovertebral joints. Predental space is within normal limits. No compression fracture identified. IMPRESSION: Bony fusion of the C5, C6 and C7 vertebral bodies. Grade 1 retrolisthesis of C3 on C4 and C4 on C5. Grade 1 anterolisthesis of C7 on T1. Severe intervertebral disc space narrowing at the C3-C4 and C4-C5 levels. Degenerative change throughout the cervical facet joints and uncovertebral joints. No compression fracture identified. If symptoms persist or worsen, consider a CT or MRI of the cervical spine for further assessment. Correlate clinically. Reviewed, dictated and finalized at location Q. IMPRESSION: Bony fusion of the C5, C6 and C7 vertebral bodies. Grade 1 retrolisthesis of C3 on C4 and C4 on C5. Grade 1 anterolisthesis of C7 on T1. Severe intervertebral disc space narrowing at the C3-C4 and C4-C5 levels. Degenerative change throughout the cervical facet joints and uncovertebral join ts. No compression fracture identified. If symptoms persist or worsen, consider a CT or MRI of the cervical spine for f urther assessment. Correlate clinically.
--- NOTE | ~2025-07-15 | XR_ITS ---
EXAMINATION: XR hip LT min 2V DATE: 07/15/2025 09:46 INDICATION: Bilateral hip pain. TECHNIQUE: 2 images of the left hip were obtained. COMPARISON: None. FINDINGS: Left hip arthroplasty without radiographic evidence for loosening. No fracture. No dislocation identified. Mild degenerative change in the pubic symphysis. There is bowel gas and stool projecting over the pelvis which limits evaluation. There are a few less than 1.0 cm calcifications projecting over the pelvis which may represent phleboliths, however, a distal ureteral stone or bladder stone or possible. IMPRESSION: 1. Left hip arthroplasty without radiographic evidence for loosening. 2. No fracture identified. If symptoms persist or worsen, consider a short-term follow-up study or additional imaging for further assessment. Reviewed, dictated and finalized at location Q. IMPRESSION: 1. Left hip arthroplasty without radiographic evidence for loosening. 2. No fracture identified. If symptoms persist or worsen, consider a short-term follow-up study or additio nal imaging for further assessment.
--- NOTE | ~2025-07-15 | XR_ITS ---
EXAMINATION: XR thoracic spine 3V DATE: 07/15/2025 09:46 INDICATION: Back pain TECHNIQUE: X-ray thoracic spine 3 views COMPARISON: 3 images of the thoracic spine were obtained. FINDINGS: Thoracic vertebral body heights are within normal limits. No compression fracture in the thoracic spine. Bones appear osteopenic. Moderate to severe degenerative change throughout the thoracic spine. Small patchy opacities in the lower lungs. The upper thoracic spine was not fully visualized in the lateral images due to overlapping structures. IMPRESSION: 1. No compression fracture in the thoracic spine. 2. Moderate to severe degenerative change throughout the thoracic spine. If symptoms persist or worsen, consider a CT or MRI of the thoracic spine for further assessment Reviewed, dictated and finalized at location Q. IMPRESSION: 1. No compression fracture in the thoracic spine. 2. Moderate to severe degenerative change throughout the thoracic spine. If symptoms persist or worsen, consider a CT or MRI of the thoracic spine for f urther assessment
--- NOTE | ~2025-07-15 | XR_ITS ---
EXAMINATION: XR hip RT min 2V DATE: 07/15/2025 09:46 INDICATION: Bilateral hip pain TECHNIQUE: 1. Anteroposterior and frog-leg lateral views of the right hip were obtained. 2. Anteroposterior and frog-leg lateral views of the left hip were obtained. COMPARISON: None. FINDINGS: Bilateral noncemented total hip arthroplasties both which appear well seated in near-anatomic alignment with no periprosthetic lucency to suggest loosening or infection. No fracture. Small amount of atherosclerotic calcific location and a few phleboliths in the pelvis. Soft tissues are otherwise unremarkable. IMPRESSION: 1. Expected appearance of bilateral total hip arthroplasties. Reviewed, dictated and finalized at location A.
--- NOTE | ~2025-07-15 | XR_ITS ---
EXAMINATION: XR lumbar spine 2-3V DATE: 07/15/2025 09:46 INDICATION: Pain TECHNIQUE: 3 images of the lumbar spine were obtained. COMPARISON: None. FINDINGS: There is bowel gas and stool projecting over the pelvis which limits evaluation. Cholecystectomy clips. Bilateral hip arthroplasties. There are a few less than 1.0 cm calcifications projecting over the pelvis which may represent phleboliths, however, a distal ureteral stone or bladder stone or possible. Mild levoconvex curvature of the lumbar spine. Lumbar vertebral body heights are within normal limits. No compression fracture in the lumbar spine. Severe intervertebral disc space narrowing at the L4-5 and L5-S1 levels. Bones appear osteopenic. Vascular calcifications are noted. IMPRESSION: 1. No compression fracture in the lumbar spine. 2. Severe intervertebral disc space narrowing at the L4-5 and L5-S1 levels. If symptoms persist or worsen, consider a CT or MRI of the lumbar spine for further assessment Reviewed, dictated and finalized at location Q. IMPRESSION: 1. No compression fracture in the lumbar spine. 2. Severe intervertebral disc space narrowing at the L4-5 and L5-S1 levels. If symptoms persist or worsen, consider a CT or MRI of the lumbar spine for fur ther assessment
--- OUTSIDE RECORDS SUMMARY | 2025-07-15 09:02 | XMS_ITS | Clinical Summary ---
Author Organization [facility] Address [address] [facility] [place] [address] Care Team Providers Care Inside Parts Sales Name Role Phone Rosina ZAVALA MD, Garrett Unavailable [phone] Douglas Samuel MD Primary Care Provider [phone] Moe Ryan MD Unavailable [phone] Source Comments [facility],non-owned Affiliates and Associated Physician Practices is amultiple site organization consisting of ambulatory clinics and hospital sitesin [place], [place], [place] and [place]. This disclosure is being madepursuant to the Care Everywhere program and may not contain all information available regarding this patient. 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
--- OUTSIDE RECORDS SUMMARY | 2025-07-15 09:03 | XMS_ITS | Patient Health Record ---
Author Organization [facility], [facility] Address [address] [place] [address] [address]. [address] [place] [address] Care Team Providers Care Instructional Technology Specialist Name Role Phone Soheila Canales MD Primary Care Provider Unavail Mariano Hyatt Unavailable [phone] Reason For Referral No Information Medications Medication SIG (Take, Route, Fr equency, Duration) Notes Start Date End Date Status Famotidine 40 MG 1 tablet Orally Twic e a day; Duration: 30 days 07/31/2024 Active Problems Problem Type SNOMED Code ICD Code Onset Dates Problem Status W/U Status Risk Notes Problem Gastritis (5909519) Other gastritis without bleeding (K29.60) Active confirmed Problem History of polyp of colon (situation) (423062153) Personal history of colonic polyps (Z86.010) Active confirmed Problem Colon cancer screening (717475653) Colon cancer screening (Z12.11) Active confirmed Problem Diverticulosis of colon (062925888) Diverticulosis of colon (K57.30) Active confirmed Problem Benign neoplasm of colon (26133571) Benign colon polyp (K63.5) Active confirmed Encounters Encounter Location Date Provider Diagnosis [facility] [address] [place] [address] [address]. [address] [place] [address] 07/24/2024 Mariano Granados Plan Of Treatment No Information Insurance Providers Payer Name Payer Address Payer Phone Subscriber Number Group Number Insured Name Patient Relationship to Insured Coverage Start Date Coverage End Date [employer] [address] [place] [address] [id number] RNEzio Boyd Spouse - patient is the spouse of the insured
--- OUTSIDE RECORDS SUMMARY | 2025-07-15 09:03 | XMS_ITS | Clinical Summary ---
Author Organization [facility] Address [address] [place] [address] Phone Care Team Providers Care Grip Name Role Phone Whitney Rodrigez APRN, TEXTILE WORKER Primary Care Pro vider Jordana Emerson MD Unavailable [phone] Allergies Active Allergy Reactions Criticality Noted [...] Active Vitamin A (BETA CAROTENE) 3 MG (61088 UT) Capsule Take 10,000 Units by mouth every other day. Active Cyanocobalamin (VITAMIN B-12 PO) Take by mouth every other day. Active VITAMIN D PO Take 5,000 Units by mouth daily. Active Apoaequorin (Prevagen) 10 MG Capsule Take 10 mg by mouth daily. Active Multivitamin-Mi nerals (Hair Skin and Nails Formula) Tablet Take 1 Tablet by mouth daily. Active Active Problems Problem Noted Date Diagnosed [...] Description 04/24/2025 11:30 AM CDT Office Visit [facility] [address] [place] [address] Jordana Emerson MD Hearing loss, unspecified hearing loss type, unspecified laterality (Primary Dx); Postoperative visit; Nasal congestion; Hypertrophy of both inferior nasal turbinates; Deviated nasal septum; Allergic rhinitis, unspecified seasonality, unspecified trigger; Eustachian tube dysfunction, right; Facial scar Discharge Disposition: Discharged to home or Selfcare 04/24/2025 Travel from Last 3 Months Immunizations Immunization [...] 04/24/2025 11:44 AM CDT Plan of Treatment Health Maintenance Due [...] tube dysfunction, right NASAL ENDOSCOPY,DX Routine 04/24/2025 11 :30 AM CDT Postoperative visit Nasal congestion Hypertrophy of both inferior nasal turbinates Deviated nasal septum Allergic rhinitis, unspecified seasonality, unspecified trigger Eustachian tube dysfunction, right COLONOSCOPY Routine 07/07/2012 from Last 3 Months [...] , ipsilateral reflex absent Jordana Emerson MD [place] - OTORHINOLARYNGOLOGIC Final Result * NASAL ENDOSCOPY,DX [...] PROCEDURE/MINOR SURGICAL ORDERA BLES Final Result * HM COLONOSCOPY (07/07/2012) Douglas Samuel DO PROCEDURE/MINOR SURGICAL ORDERAB LES Final Result from Last 3 Months or Most Recently Relevant to Health Maintenance Care Teams Grip Relationship Specialty Start Date End Date Whitney Rodrigez, TUBE TEST TECHNICIAN, TEXTILE WORKER [address] [place] [address] PCP - General Advanced Practice Nurse 03/07/25 Jordana Emerson MD [address] [facility] [address] [place] [id number] Consulting Physician Otolaryngology 03/07/25
--- OUTSIDE RECORDS SUMMARY | 2025-07-15 09:03 | XMS_ITS | Encounter Summary ---
Author Organization [facility] Address [address] [place] [address] Phone Care Team Providers Care Motor Pool Clerk Name Role Phone Whitney Rodrigez APRN, CNP Primary Care Pro vider Jordana Emerson MD Unavailable [phone] Encounter Details Date Type Department Care Team (Late st Contact Info) Description 03/08/2025 [facility] [address] [place] [address] Jordana Emerson MD #2 [facility] [address] [place] [address] Pre-op testing (Primary Dx) Social History [...] as of this encounter Plan of Treatment Not on file documented as of this encounter Results * APTT (PTT) (03/08/2025 11:19 AM CDT) PTT 28 24 - 36 sec 03/08/2025 12:45 PM CDT [facility] Blood Venipuncture / Unknown 03/08/2025 11:19 AM CDT 03/08/2025 12:26 PM CDT Narrative [facility] - 03/08/2025 12:45 PM CDT Therapeutic range for unfractionated heparin at 0.3-0.7 U/mL is an aPTT value in the range of 71-100 seconds. Critical value for the PTT test is >= 122 seconds. Jordana Emerson MD HEMATOLOGY ORDERABLES Final Res ult Performing Organization Address City/[facility] Co de Phone Number [facility] [address] [place] [address] * PROTIME (PT) (PROTHROMBIN TIME) (03/08/2025 11:19 [...] ORDERABLES Final Res ult Performing Organization Address [facility] Co de Phone Number [facility] [address] [place] [address] documented in this encounter Visit Diagnoses Diagnosis Pre-op testing- Primary Preoperative examination, unspecified documented in this encounter Additional Health Concerns Assessment Noted Time PHQ-9 Depression Total Score: 9 11/07/19 18 1:00 PM 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
--- OUTSIDE RECORDS SUMMARY | 2025-07-15 09:03 | XMS_ITS | Patient Health Record ---
Author Organization [facility] Address [address] [place] [address] Care Team Providers Care Rockboard Lather Name Role Phone Soheila Canales Primary Care Provider Katy Barrera MD, Eladio Unavailable [phone] ALLERGIES Allergen (clinical drug ingredient) Drug/Non Drug Allergy documented on EMR Reaction Allergy Type Onset Date Status levofloxacin Levofloxacin Unknown Drug Allergy A ctive REASON FOR REFERRAL No Information MEDICATIONS Medication SIG (Take, Route, Fr equency, Duration) Notes Start Date End Date Status Wolverine Active RABEprazole Sodium A ctive Carisoprodol Active Vitamin A Active Low-Dose Aspirin Act alfredo LORazepam Active Vitamin B Complex Ac tive Vitamin D Active IMMUNIZATIONS Vaccine Route Administration Date Status Comme nts Influenza Unknown 05/05/2022 Administered pneumoccocal Unknown 05/05/2022 Administered SOCIAL HISTORY Tobacco Use: Social History Observation Description Date Details (start date - stop date) Current Smoker NA - NA Sex Assigned At : Social History Observation Description Sex Assigned At Unknown Tobacco Use: Question Answer Notes Patient is a: current smoker How often do you smoke cigarettes? every day How many cigarettes a day do you smoke? 11-20 Are you interested in quitting? Ready to quit Alcohol screening: Question Answer Notes Did you have a drink containing alcohol in the p ast year? No Points 0 Interpretation Negative PROBLEMS Problem Type ICD Code Onset Dates Problem Status W/U Status Risk SNOMED Code Notes Problem Unspecified injury of left shoulder and upper arm, initial encounter (S49.92XA) 2 Active confirmed Injury of shoulder and upper arm (655236238) Problem Strain of muscle(s) and tendon(s) of the rotator cuff of right shoulder, initial encounter (S46.011A) 2 Active confirmed Strain of muscle of right shoulder (57661816964283 105) Problem Impingement syndrome of right shoulder (M75.41) 2 Active confirmed Impingement syndrome of shoulder region (082172156) Problem Fall in shower (W18.2XXA) 2 Active confirmed Fall in shower (72828447) PLAN OF TREATMENT Pending Test Test Name Order Date Intra-articular Injection: Left Shoulder 05/18/2022 Insurance Providers Payer Name Payer Address Payer Phone Subscriber Number Group Number Insured Name Patient Relationship to Insured Coverage Start Date Coverage End Date Nora [address] [place] [phone] [id number] Juliet Jaramillo Self - patient is the insured MEDICAL (GENERAL) HISTORY Medical History History ICD Code HLD 1 Kidney Acid reflux RA Ulcers Surgical History Surgery Date(Month/Year) Right nephrectomy 1964 Tonsilectomy and adenoidectomy 1967 Appendectomy 1976 Neck surgery 1995 Right ovary and fallopian tube surgery 2 000 Breast implants 2007 Left and right hip surgery 2013
== END 2025-07-15 08:36 | disposition home or self-care (01) ==
LOC: CHSIMG 08:39
PROVIDERS: PCP Internal Medicine; Visit Provider Internal Medicine
DX: M25.552 Pain in left hip (principal); M25.551 Pain in right hip; M54.2 Cervicalgia; M54.6 Pain in thoracic spine; M43.02 Spondylolysis, cervical region; M85.88 Other specified disorders of bone density and structure, other site; Z96.643 Presence of artificial hip joint, bilateral; M19.042 Primary osteoarthritis, left hand; M19.041 Primary osteoarthritis, right hand; M19.032 Primary osteoarthritis, left wrist; M19.031 Primary osteoarthritis, right wrist
CPT/HCPCS: 72040; 72072; 72100; 73110; 73130; 73502

== ENCOUNTER 2025-07-24 10:46 | Outpatient (CLI) | payer OTHER, SELFPAY ==
--- NOTE | ~2025-07-24 | US_ITS ---
EXAMINATION: US abdomen complete DATE: 07/24/2025 13:28 INDICATION: Hematuria. Liver cyst. TECHNIQUE: Multiple grayscale and Doppler ultrasound images of the abdomen were obtained. COMPARISON: 05/22/2021 FINDINGS: Abdominal aorta is normal measuring up to 2.0 cm in maximal diameter proximally tapering to 1.6 cm in the distal aorta. Inferior vena cava is unremarkable. The pancreatic head and body are normal in appearance. The pancreatic tail is not visualized. Liver has normal echogenicity and contour, with a smooth surface. 5.7 similar anechoic cyst in the left hepatic lobe and smaller 1.6 cm anechoic cyst in the right hepatic lobe. No intrahepatic biliary duct dilation suspected. Portal venous flow was seen in the hepatopetal, normal direction and has normal Doppler waveform.. Gallbladder is nonvisualized and reportedly surgically absent. The common bile duct is dilated to 12 mm in maximal diameter. The di stalmost common bile duct is not visualized. Normal spleen measuring 9.3 cm in length. The right kidney is not visualized and also reportedly absent. The left kidney measures 12.0 x 4.7 x 4.7 cm with normal contour and echogenicity. No evident shadowing nephrolithiasis or hydronephrosis in the left kidney. Left extrarenal pelvis versus mild hydroureter of the proximal most left ureter. The more distal ureters not visualized. The incompletely distended bladder is normal with left-sided ureteral jet visualized on color Doppler. IMPRESSION: 1. Left extra renal pelvis versus mild proximal left hydroureter with no lesley hydronephrosis and with left ureteral jet visualized in the bladder. Status post right nephrectomy. 2. Common duct bile duct dilated to 12 mm without intrahepatic ductal or ductal dilation, likely related to prior cholecystectomy. Correlate with liver function tests and if there is clinical concern for biliary obstruction could consider MRCP for further evaluation of the distalmost nonvisualized common bile duct. 3. Normal caliber abdominal aorta. Reviewed, dictated and finalized at location A. DEPILER OPERATOR IMPRESSION: 1. Left extra renal pelvis versus mild proximal left hydroureter with no lesley hydronephrosis and with left ureteral jet visualized in the bladder. Status pos t right nephrectomy. 2. Common duct bile duct dilated to 12 mm without intrahepatic ductal or ductal dilation, likely related to prior cholecystectomy. Correlate with liver functi on tests and if there is clinical concern for biliary obstruction could conside r MRCP for further evaluation of the distalmost nonvisualized common bile duct. 3. Normal caliber abdominal aorta.
--- OUTSIDE RECORDS SUMMARY | 2025-07-25 10:39 | XMS_ITS | Clinical Summary ---
Author Organization [facility] Address [address] [facility] [place] [address] Care Team Providers Care Laboratory Veterinarian Name Role Phone Rosina ZAVALA MD, Garrett Unavailable [phone] Douglas Samuel MD Primary Care Provider [phone] Moe Ryan MD Unavailable [phone] Source Comments [facility],non-owned Affiliates and Associated Physician Practices is amultiple site organization consisting of ambulatory clinics and hospital sitesin [place], [place], [place] and [place]. This disclosure is being madepursuant to the Care Everywhere program and may not contain all information available regarding this patient. 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
--- OUTSIDE RECORDS SUMMARY | 2025-07-25 10:40 | XMS_ITS | Encounter Summary ---
Author Organization [facility] Address [address] [place] [address] Phone Care Team Providers Care Agricultural Engineering Technologist Name Role Phone Whitney Rodrigez APRN, CNP Primary Care Pro vider Jordana Emerson MD Unavailable Encounter Details Date Type Department Care Team (Late st Contact Info) Description 03/08/[address] [facility] Preop/Pacu II [address] [place] [address] Jordana Emerson MD #2 [facility] [address] [place] [address] Pre-op testing (Primary Dx) Social [...] - 36 sec 03/08/2025 12:45 PM CDT [facility] Blood Venipuncture / Unknown 03/08/2025 11:19 AM CDT 03/08/2025 12:26 PM CDT Narrative [facility] - 03/08/2025 12:45 PM CDT Therapeutic range for unfractionated heparin at 0.3-0.7 U/mL is an aPTT value in the range of 71-100 seconds. Critical value for the PTT test is >= 122 seconds. Jordana Emerson MD HEMATOLOGY ORDERABLES Final Res ult Performing Organization Address [facility] Co de Phone Number [facility] [address] [place] [address] * PROTIME (PT) (PROTHROMBIN TIME) (03/08/2025 11:19 AM CDT) PROTIME-PATIENT 13.0 11.6 - 14.8 sec 03/08/2025 12:45 PM CDT [facility] INR 1.0 0.9 - 1.2 03/08/2025 12:45 PM CDT [facility] Comment: Therapeutic Ranges INR = 2.0-3.0: Venous thromb, atrial fib, pul embolism, tissue heart valve, ami. INR = 2.5-3.5: Mechanical heart valve Critical value for INR is >/= 4.5 Blood Venipuncture / Unknown 03/08/2025 11:19 AM CDT 03/08/2025 12:26 PM CDT Jordana Emerson MD HEMATOLOGY ORDERABLES Final Res ult Performing Organization Address [facility] de Phone Number [facility] [address] [place] [address] documented in this encounter Visit Diagnoses Diagnosis Pre-op testing- Primary Preoperative examination, unspecified documented in this encounter Additional Health Concerns Assessment Noted Time PHQ-9 Depression Total Score: 9 11/07/19 18 1:00 PM 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
--- OUTSIDE RECORDS SUMMARY | 2025-07-25 10:40 | XMS_ITS | Patient Health Record ---
Author Organization [facility] Address [address] [facility] [facility] [address] [place] [address] Care Team Providers Care Auctioneer Art Name Role Phone Soheila Canales MD Primary Care Provider Unavail able Mariano Granados Unavailable [phone] Reason For Referral No Information Medications Medication SIG (Take, Route, Fr equency, Duration) Notes Start Date End Date Status Famotidine 40 MG 1 tablet Orally Twic e a day; Duration: 30 days 07/31/2024 Active Problems Problem Type SNOMED Code ICD Code Onset Dates Problem Status W/U Status Risk Notes Problem Gastritis (6106105) Other gastritis without bleeding (K29.60) Active confirmed Problem History of polyp of colon (situation) (654367695) Personal history of colonic polyps (Z86.010) Active confirmed Problem Colon cancer screening (627309910) Colon cancer screening (Z12.11) Active confirmed Problem Diverticulosis of colon (136812882) Diverticulosis of colon (K57.30) Active confirmed Problem Benign neoplasm of colon (75072735) Benign colon polyp (K63.5) Active confirmed Plan Of Treatment No Information Insurance Providers Payer Name Payer Address Payer Phone Subscriber Number Group Number Insured Name Patient Relationship to Insured Coverage Start Date Coverage End Date [employer] [address] [place] [address] [id number] Ezio Sanders Spouse - patient is the spouse of the insured
--- OUTSIDE RECORDS SUMMARY | 2025-07-25 10:40 | XMS_ITS | Clinical Summary ---
Author Organization [facility] Address [address] [place] [id number] Care Team Providers Care Sales Development Representative Name Role Phone Whitney Rodrigez NP Primary Care Provider Allergies Active Allergy Reactions Criticality Noted Date Comments Acetaminophen-Codeine Nausea only,Vomiting,Nause a And Vomiting 10/03/2013 Reaction: NAUSEA, VOMITING, Pt states she take tylenol alone at home with no reaction Amoxicillin-Pot Clavulanate Diarrhea,Rash,Nause a & Vomiting Medium 03/06/2025 Codeine Nausea & Vomiting Low 02/12/2025 Corticosteroids (Glucocorticoids) Anxiety Low 07/23/2025 Gabapentin Other (See comments) 02/12/2025 Sadness; pt does not want Levofloxacin Other (See comments) 07/26/2017 Joint pain Ckcekco-Rak-Kee Reductase Inhibitors Unknown 02/12/2025 Medications aspirin 81 mg enteric coated tablet Take 1 tablet (81 mg total) by mouth daily Active carisoprodoL (SOMA) 350 mg tabletIndications: Muscle spasm Take 1 tablet (350 mg total) by mouth 3 (three) times a day as needed for muscle spasms 90 tablet 02/13/20 25 Active ezetimibe (ZETIA) 10 mg tabletIndications: Dyslipidemia Take 1 tablet (10 mg total) by mouth daily 90 tablet 02/13/20 25 Active azelastine-flutica sone 137-50 mcg/spray spray,non-aerosolI ndications:Chronic rhinitis Administer 1 spray into affected nostril(s) 2 (two) times a day 23 g 2 02/13/20 25 Active cetirizine (ZyrTEC) 10 mg tabletIndications: Chronic rhinitis Take 1 tablet (10 mg total) by mouth daily as needed for allergies 90 tablet 1 02/13/[address] (ACIPHEX) 20 mg EC tablet Take 1 tablet (20 mg total) by mouth daily 90 tablet 1 02/16/20 25 Active ondansetron ODT (ZOFRAN-ODT) 4 mg disintegrating tablet Take 1 tablet (4 mg total) by mouth every 8 (eight) hours as needed for nausea or vomiting 21 tablet 02/29/20 25 Active neomycin-bacitraci n-polymyxin B-pramoxine (NEOSPORIN PLUS) 3.5-500-10,000 wx-neql-rpmg/g ointmentIndication s:Abrasion Apply topically 2 (two) times a day 28 g 03/06/20 25 Active diclofenac sodium (VOLTAREN) 1 % gelIndications:Shauna n in toes of both feet Apply 2 g topically 3 (three) times a day 50 g 03/06/20 25 Active LORazepam (ATIVAN) 1 mg tabletIndications: Generalized anxiety disorder TAKE 1 TABLET (1 MG TOTAL) BY MOUTH TWO (2) (TWO) TIMES a DAY 60 tablet 06/11/20 25 Active HYDROcodone-acetam inophen (NORCO) 7.5-325 mg per tabletIndications: Pain TAKE 1 TABLET BY MOUTH EVERY 8 (EIGHT) HOURS NEEDED FOR PAIN 90 tablet 06/11/20 25 025 Active Problems Problem Noted Date Diagnosed Date Deviated nasal septum 07/24/2025 Nasal turbinate hypertrophy 07/24/2025 Internal nasal valve collapse, static 07/24/2025 External nasal valve collapse, static 07/24/2025 Closed fracture of nasal bones 07/24/2025 Diverticulosis of colon 02/12/2025 Dyslipidemia 02/12/2025 Assessment & Plan (02/12/2025 9:38 AM CDT): -chronic, controlled -currently takes Zetia 10 mg -Discussed importance of well-balanced diet -will recheck lab values at future visits -refill of medication provided -continue current treatment plan History of colonic polyps 02/12/2025 Overweight with body mass in dex (BMI) of 26 to 26.9 in adult 02/12/2025 Assessment & Plan (03/06/2025 5:58 PM CDT): Wt Readings from Last 3 Encounters: 03/06/25 57 kg (125 lb 9.6 oz) 02/12/25 58.4 kg (128 lb 12.8 oz) 07/04/17 60 kg (132 lb 4.1 oz) Body mass index is 26.25 kg/m . -Stable, at goal of <30 bmi -Discussed recommendations for exercise at least 30 minutes moderate to vigorous exercise as tolerated most days of the week. (minimum 150 minutes weekly) -Discussed importance of well-balanced diet Assessment & Plan (02/12/2025 8:20 AM CDT): Wt Readings from Last 3 Encounters: 02/12/25 58.4 kg (128 lb 12.8 oz) 07/04/17 60 kg (132 lb 4.1 oz) Body mass index is 26.93 kg/m . -Stable, at goal of <30 bmi -Discussed recommendations for exercise at least 30 minutes moderate to vigorous exercise as tolerated most days of the week. (minimum 150 minutes weekly) -Discussed importance of well-balanced diet Status post bilateral total hip replacement 01/18 Chronic low back pain with sciatica 02/12/2025 Assessment & Plan (02/12/2025 11:51 AM CDT): -Chronic, not at goal -Patient endorses longstanding history of chronic back pain, previous surgical intervention, osteoarthritis -Currently takes Monroe 7.5-325 mg t.i.d. as needed, carisoprodol 350 mg t.i.d. as needed -Patient endorses difficulty with tolerating previous interventions/medications -Referral to pain management placed -Short term refill of medication provided until patient is able to establish care with specialist -Continue current treatment plan Muscle spasm 02/12/2025 Assessment & Plan (02/12/2025 11:49 AM CDT): -Chronic, suboptimally controlled -Currently takes carisoprodol 350 mg t.i.d. as needed -Patient endorses long history of muscle spasms and chronic pain -Difficulty tolerating other pharmaceutical options -Refill of medication provided -Referral to pain management -Continue current treatment plan Gastroesophageal reflux disease 02/12/2025 Assessment & Plan (02/12/2025 9:40 AM CDT): -chronic, controlled -patient currently takes rabeprazole 20 mg daily -patient encouraged to continue avoiding trigger foods and remaining upright at least 30 minutes after eating or drinking -refill of medication provided -continue current treatment plan Generalized anxiety disorder 02/12/2025 Assessment & Plan (02/12/2025 9:40 AM CDT): -chronic, controlled -patient currently takes lorazepam 1 mg b.i.d. -patient denies any worsening of depressed mood, thoughts of harming themselves or others, or worsening anxiety -Discussed risks of long-term benzodiazepine use -refill of medication provided -continue current treatment plan Chronic rhinitis 02/12/2025 Assessment & Plan (02/12/2025 11:48 AM CDT): -Chronic, not at goal -Patient endorses ongoing congestion, head fullness since having COVID a few months ago -OTC medication has provided some relief -Will trial azelastine-fluticasone nasal spray, Zyrtec nightly -Encouraged patient to reach out to office if not improved -Continue current treatment plan Preventative health care 12/21/2024 Thyroid nodule 08/01/2017 Assessment & Plan (02/12/2025 9:39 AM CDT): -Chronic, controlled -Patient endorses previous history of thyroid nodule -Will obtain records from previous PCP -Continue current treatment plan Encounters Date Type Department Care Team Description 07/23/2025 10:20 AM LIBRARY CIRCULATION DEPARTMENT CHIEF Office Visit [facility] ENT [address] [facility] [address] [place] [address] Mi Perez MD Nasal obstruction (Primary Dx) 06/13/2025 Telephone [facility] Primary Care at [address] [place] [address] Whitney Rodrigez NP 05/23/2025 Telephone [facility] Medicine Otolaryngology [address] [place] [address] Patricia Cole MS from Last 3 Months Immunizations Immunization Administration Dates Next Due Influenza, Quadrivalent, Spl it, Preservative Free, Intramuscular 07/14/2023,06/01/2022,07/15/2021,06/11,08/09/2017,05/27/2016,09/01/2015 Influenza, Trivalent, IM (MDV) 06/21/2012 Influenza, Trivalent, Preser vative Free, Intramuscular 07/10/2024 Pneumococcal Polysaccharide PPV23 11/07/2017 Tdap 01/06/2017 Surgical History Surgery Date Site/Laterality Comments TOTAL HIP ARTHROPLASTY Hip Replacement - (Added by TW Conv) KIDNEY SURGERY 1964 TONSILLECTOMY AND ADENOIDECTOMY 1965 BILATERAL OOPHORECTOMY Medical History Medical History Date Comments Anxiety disorder Anxiety - (Adde d by Conv) Hyperlipidemia GERD (gastroesophageal reflux disease) Family History Medical History Relation Name Comments Hyperlipidemia Brother Hypertension Brother Heart disease Father Hypertension Father Family history of hypertension - (Added by TW Conv) Rheum arthritis Father Family histo ry of rheumatoid arthritis - (Added by TW Conv) No Known Problems Maternal Grandfather Irregular heart beat Maternal Grandmother Irregular heart beat Mother Rheum arthritis Mother Family histo ry of rheumatoid arthritis - (Added by TW Conv) Heart attack Paternal Grandfather Heart attack Paternal Grandmother age 45 No Known Problems Sister 1 Drug abuse Sister 2 Relation Name Status Comments Brother Alive Father Maternal Grandfather Maternal Grandmother Mother Paternal Grandfather Paternal Grandmother Sister 1 Alive Sister 2 Alive Social History Tobacco Use Types Packs/Day Years Used Date Smoking Tobacco: Every Day Tobacco Cessation:Ready to Q uit: Not Asked; Counseling Given: Not Answered PHQ-2 Answer Date Recorded PHQ-2 Total Score (If total score is 3 or more points, staff should administer the PHQ-9) 0 02/12/2025 AUDIT-C Answer Date Recorded Frequency of Alcohol Consumption Not on file 07/23/2025 Q2: How many drinks containi ng alcohol do you have on a typical day when you are drinking? Patient does not drink Frequency of Binge Drinking Not on file 12/2024 Comments No Sex and Gender Information Value Date Recorded Sex Assigned at Not on file Legal Sex Female 7:01 PM LIBRARY CIRCULATION DEPARTMENT CHIEF Gender Identity Not on file Sexual Orientation Not on file Last Filed Vital Signs Vital Sign Reading Time Taken Comments Blood Pressure 140/82 07/23/2025 10:20 AM LIBRARY CIRCULATION DEPARTMENT CHIEF Pulse 77 07/23/2025 10:20 AM LIBRARY CIRCULATION DEPARTMENT CHIEF Temperature 36.7 C (98 F) 02/12/2025 8:15 AM CDT Respiratory Rate 16 03/06/2025 2:24 PM CDT Oxygen Saturation 97% 03/06/2025 2:24 PM CDT Inhaled Oxygen Concentration - - Weight 58.7 kg (129 lb 6.4 oz) 07/23/2025 10:20 AM LIBRARY CIRCULATION DEPARTMENT CHIEF Height 147.3 cm (4' 10) 07/23/2025 10:20 AM LIBRARY CIRCULATION DEPARTMENT CHIEF Body Mass Index 27.04 07/23/2025 10:20 AM LIBRARY CIRCULATION DEPARTMENT CHIEF Plan of Treatment Scheduled Procedures Name Priority Associated Diagnoses Date/Ti me RHINOPLASTY. Deviated nasal septum Nasal turbinate hypertrophy Internal nasal valve collapse, static External nasal valve collapse, static Closed fracture of nasal bone, sequela REDUCTION INFERIOR TURBINATE. Deviated nasal septum Nasal turbinate hypertrophy Internal nasal valve collapse, static External nasal valve collapse, static Closed fracture of nasal bone, sequela Health Maintenance Due Date Last Done Comments Breast Cancer Screening-Mammogram 1960 Cervical Cancer Screening 1960 Colon Cancer Screening-Colonoscopy 1960 Hepatitis C Screening 1960 Osteoporosis Screening-Bone Density Scan 1960 Hepatitis B Screening 1978 Zoster Vaccine (1 of 2) 2010 Pneumococcal vaccine 65+ (2 of 2 - PCV) 11/07/2018 11/07/2017 Well Visit 65+ 2025 Covid-19 Vaccine (6 - 2024-2 6 season) 2025 03/02/2023, 07/01/2022, 12/31/2021, Additional history exists Influenza Vaccine (#1) 2025 , 07/14/2023, 06/01/2022, Additional history exists Depression Screening 02/12/2026 02/12/2025 Fall Risk Assessment 02/12/2026 02/12/2025 DTaP/Tdap/Td Vaccine (2 - Td or Tdap) 01/06/2027 01/06/2017 Insurance [employer] SIG [id number] [place] [address] Care Teams Sales Development Representative Relationship Specialty Start Date End Date Whitney Rodrigez NP [address] [facility] [facility] [place] [address] PCP - General Family Medicine 02/12/25
--- OUTSIDE RECORDS SUMMARY | 2025-07-25 10:40 | XMS_ITS | Clinical Summary ---
Author Organization [facility] Address [address] [place] [address] Phone Care Team Providers Care Chronometer Repairer Name Role Phone Whitney Rodrigez APRN, DIESEL MAINTENANCE ELECTRICIAN Primary Care Pro vider Jordana Emerson MD Unavailable [phone] Allergies Active Allergy Reactions Criticality Noted [...] Active Vitamin A (BETA CAROTENE) 3 MG (85705 UT) Capsule Take 10,000 Units by mouth [...] [facility] - Ear, Nose & Throat [facility] [address] [place] [address] Jordana Emerson MD Hearing loss, [...] , ipsilateral reflex absent Jordana Emerson MD [place] - OTORHINOLARYNGOLOGIC Final Result * NASAL ENDOSCOPY,DX [...] Recently Relevant to Health Maintenance Care Teams Chronometer Repairer Relationship Specialty Start Date End Date Whitney Rodrigez, HOSPITALITY AIDE, DIESEL MAINTENANCE ELECTRICIAN [address] [place] [address] PCP - General Advanced Practice Nurse 03/07/25 Jordana Emerson MD [address] [facility] [address] [place] [id number] Consulting Physician Otolaryngology 03/07/25
--- NOTE | 2025-08-08 15:23 | P.PCNPFT_ITS ---
PFT Procedure Performed PFT Procedure Performed Spirometry with Pre/Post Bronchodilator Plethysmography (Lung Vol) Diffusing Cap (DLCO) Flow Vol Loop PFT Interpretation DOS: 07/24/2025 REQUESTING: Dr Lay REASON FOR TESTING: Shortness of breath PULMONARY FUNCTION TESTS Results are reliable and reproducible. Repeatability of spirometry FEV1 maneuver pre and post bronchodilator is Grade A. [place]: John Cotton Dust reference equations were used. Spirometry: The pre-bronchodilator FEV1 is 1.74 L, 91%, normal. The pre- bronchodilator FVC is 2.60 L, 111%. The FEV1/FVC ratio is 67%, decreased. After bronchodilator, the FEV1 is 1.82 L, 95%, +5%. After bronchodilator, the FVC is 2.61 L, 111%, no change. The FEV1/FVC ratio is 70%. Lung volumes: The total lung capacity is 5.04 L, 131%. The residual volume is 2.45 L, 165%, increased consistent with moderate air trapping. The RV/TLC is 49 %, increased. FRC is 3.39 L, 151%. Airway resistance is normal. Diffusion: DLCO is 8.9, 54%, moderately decreased. The DLCO/VA is 2.62, 71%, normal. Flow volume loop: The flow volume loop shows minimal coving of the expiratory limb. IMPRESSION: This study shows a mild obstructive ventilatory impairment with insignificant response to bronchodilator, mild hyperinflation, moderate air trapping, moderate diffusion impairment which corrects for alveolar volume. Lack of response to bronchodilator should not preclude use if clinically indicated. There are no prior studies to compare. Niox is 5 ppb, normal. Elevated exhaled nitric oxide levels can indicate increased airway inflammation. Iqra Chery MD
== END 2025-07-24 10:47 | disposition home or self-care (01) ==
LOC: CHSCARD 11:00
PROVIDERS: PCP Internal Medicine; Visit Provider Internal Medicine
DX: R31.9 Hematuria, unspecified (principal); Z13.6 Encounter for screening for cardiovascular disorders; I73.9 Peripheral vascular disease, unspecified; K76.89 Other specified diseases of liver; M81.0 Age-related osteoporosis without current pathological fracture
CPT/HCPCS: 76700; 94060; 94726; 94729; 95012